=== PATIENT | female | born 1945 | race Asian ===

== ENCOUNTER 2016-12-11 07:35 | Outpatient (CLI) | payer OTHER ==
[~2016-12-11 07:35] MED LIST: ACET-655 PO; ACID REDUCER150 MG PO; B COMPLE2 PO; BIOTIN5000 MCG PO; FERRETTS325 MG OR; FERROUS SULF325 M1 PO; FLUT0.05 NAS; IRON SUPPLEMEN325 MG PO; IRON325 MG OR; LEVO0.0723 PO; LEVO0.08 PO; LISI10TA11 PO; LISI20TA11 PO; LISI20TA24 PO; LOPRESSOR100 MG; LOPRESSOR100 MG PO; MAG OXIDE400 MG PO; MECLIZINE25 MG PO; MILLIPRED5 MG; NEURONTIN 100M100 MG PO; PANT40TA PO; PRED5TAB3 PO; TRAM50TA PO; UNITH DIRECT88 MCG; VITAMIN D-35000 UNIT PO
[2016-12-11 07:58] LABS: PLATELET COUNT 174 K/uL (152-353)
[2016-12-11 08:38] LABS: POTASSIUM 3.6 mmol/L (3.6-5.2); SODIUM 137 mmol/L (136-145)
== END 2016-12-11 19:24 | disposition home or self-care (01) ==
LOC: MAMMO 07:35
PROVIDERS: Physician Assistant
DX: Z12.31 Encounter for screening mammogram for malignant neoplasm of breast (principal); E03.8 Other specified hypothyroidism; E87.1 Hypo-osmolality and hyponatremia; D64.89 Other specified anemias
CPT/HCPCS: 36415; 80053; 80061; 84439; 84443; 85027; G0202-TC

== ENCOUNTER 2017-05-23 09:58 | Outpatient (CLI) | payer OTHER | END 2017-05-23 21:34 | disposition home or self-care (01) | LOC: RAD 09:58 | DX: M85.89 Other specified disorders of bone density and structure, multiple sites (principal) ==

== ENCOUNTER 2017-05-26 09:31 | Outpatient (CLI) | payer OTHER | END 2017-05-26 19:01 | disposition home or self-care (01) | LOC: RAD 09:31 | DX: M85.88 Other specified disorders of bone density and structure, other site (principal) ==

== ENCOUNTER 2017-08-14 12:29 | Outpatient (CLI) | payer OTHER | END 2017-08-14 20:15 | disposition home or self-care (01) | LOC: LAB 12:29 | DX: M32.10 Systemic lupus erythematosus, organ or system involvement unspecified (principal); M79.7 Fibromyalgia; Z79.891 Long term (current) use of opiate analgesic | CPT/HCPCS: 81000 ==

== ENCOUNTER 2017-08-16 12:32 | Emergency (ER) | payer OTHER ==
[~2017-08-16] VITALS: Ht 165.1 cm; Wt 84.4 kg
[2017-08-16 13:33] VITALS: TEMP 98.7
[2017-08-16 15:18] LABS: PLATELET COUNT 171 K/uL (152-353)
[2017-08-16 15:28] LABS: POTASSIUM 3.7 mmol/L (3.6-5.2)
[2017-08-16 17:25] VITALS: BP 154/84
== END 2017-08-16 17:25 | disposition home or self-care (01) ==
LOC: ED 12:32
DX: R05 Cough (principal); J02.9 Acute pharyngitis, unspecified; R60.9 Edema, unspecified
CPT/HCPCS: 80053; 85027; 96374; 99284; J2930

== ENCOUNTER 2017-11-27 11:03 | Outpatient (CLI) | payer OTHER ==
[2017-11-27] MEDS ORDERED: LORA0.5T17 PO (22:38)
[2017-11-27] MEDS ORDERED: LOVASTATIN40 MG PO (22:43)
[2017-11-28] MEDS ORDERED: CYCL10TA35 PO (10:47)
== END 2017-11-27 11:13 | disposition short-term general hospital (02) ==
LOC: AMB 11:03
DX: R06.02 Shortness of breath (principal); I10 Essential (primary) hypertension
CPT/HCPCS: A0425; A0427

== ENCOUNTER 2017-11-27 11:23 | Observation (INO) | payer OTHER ==
[2017-11-27] VITALS (9 sets, daily range): BP systolic 80–196; BP diastolic 33–84; TEMP 97.3–98; Ht 165.1 cm; Wt 95.8 kg
[~2017-11-27] VITALS: Ht 165.1 cm; Wt 95.8 kg
[2017-11-27 12:42] LABS: PLATELET COUNT 199 K/uL (152-353)
[2017-11-27 12:45] LABS: POTASSIUM 3.6 mmol/L (3.6-5.2); SODIUM 135 mmol/L (136-145)
[2017-11-27] MEDS ORDERED: LORA0.5T17 PO (22:38)
[2017-11-27] MEDS ORDERED: LOVASTATIN40 MG PO (22:43)
[2017-11-28 00:27] VITALS: BP 127/63; TEMP 97.7
[2017-11-28 04:00] VITALS: BP 107/56; TEMP 98.2
[2017-11-28 05:41] LABS: PLATELET COUNT 166 K/uL (152-353)
[2017-11-28 06:03] LABS: POTASSIUM 3.3 mmol/L (3.6-5.2)
[2017-11-28 08:00] VITALS: BP 154/74; TEMP 97.8
[2017-11-28] MEDS ORDERED: CYCL10TA35 PO (10:47)
== END 2017-11-28 12:20 | disposition home or self-care (01) ==
LOC: ED 11:23 → MED/SURG 13:30
PROVIDERS: ADMIT Family Medicine
DX: I95.89 Other hypotension (principal); I10 Essential (primary) hypertension; R53.1 Weakness; M32.9 Systemic lupus erythematosus, unspecified; M79.7 Fibromyalgia
CPT/HCPCS: 36415; 80053; 82550; 82553; 84443; 84484; 85027; 86160; 93005; 96365; 96372; 96374; 99220; 99284; G0378; J1650; J2405

== ENCOUNTER 2017-12-17 17:25 | Outpatient (CLI) | payer OTHER ==
[~2017-12-17 17:25] MED LIST changes: +CYCL10TA35 PO; +LORA0.5T17 PO; +LOVASTATIN40 MG PO
[2017-12-17] MEDS ORDERED: ACYCLOVIR800 MG PO (18:11)
[2017-12-17] MEDS ORDERED: VITAMIN D-31000 UNI1 PO (18:12)
== END 2017-12-17 17:27 | disposition short-term general hospital (02) ==
LOC: AMB 17:25
DX: R07.89 Other chest pain (principal); M25.512 Pain in left shoulder; M25.511 Pain in right shoulder; R53.1 Weakness
CPT/HCPCS: A0425; A0429

== ENCOUNTER 2017-12-17 17:31 | Emergency (ER) | payer OTHER ==
[~2017-12-17] VITALS: Ht 165.1 cm; Wt 85.7 kg
[2017-12-17] MEDS ORDERED: ACYCLOVIR800 MG PO (18:11)
[2017-12-17] MEDS ORDERED: VITAMIN D-31000 UNI1 PO (18:12)
[2017-12-17 18:21] LABS: PLATELET COUNT 176 K/uL (152-353)
[2017-12-17 18:27] LABS: POTASSIUM 3.6 mmol/L (3.6-5.2)
[2017-12-17 19:45] VITALS: BP 135/71; TEMP 97.7
== END 2017-12-17 19:45 | disposition home or self-care (01) ==
LOC: ED 17:31
DX: T78.49XA Other allergy, initial encounter (principal); I47.1 Supraventricular tachycardia
CPT/HCPCS: 36415; 80053; 85027; 86787; 93005; 96374; 99284; J2930

== ENCOUNTER 2018-01-13 09:11 | Emergency (ER) | payer OTHER ==
[~2018-01-13] VITALS: Ht 165.1 cm; Wt 86.2 kg
[2018-01-13 09:18] VITALS: TEMP 97.9
[2018-01-13 09:34] LABS: PLATELET COUNT 211 K/uL (152-353)
[2018-01-13 09:45] LABS: POTASSIUM 3.2 mmol/L (3.6-5.2)
[2018-01-13 10:10] LABS: PARTIAL THROMBOPLASTIN TIME 25.4 SECONDS (24.5-33.6)
[2018-01-13 13:19] VITALS: BP 166/79
== END 2018-01-13 13:30 | disposition home or self-care (01) ==
LOC: ED 09:11
PROVIDERS: Emergency Medicine
DX: R07.89 Other chest pain (principal); T46.1X5A Adverse effect of calcium-channel blockers, initial encounter; Y92.89 Other specified places as the place of occurrence of the external cause
CPT/HCPCS: 80053; 82550; 82553; 83880; 84484; 85027; 85610; 85730; 93005; 96374; 96375; 99284; J1200; J2930

== ENCOUNTER → 2018-01-13 | Outpatient (CLI) | payer OTHER ==
[~2018-01-13] MED LIST changes: +ACYCLOVIR800 MG PO; +VITAMIN D-31000 UNI1 PO
== END | disposition short-term general hospital (02) ==
LOC: AMB 08:49
DX: R07.89 Other chest pain (principal); I10 Essential (primary) hypertension
CPT/HCPCS: A0425; A0427

== ENCOUNTER 2018-01-15 08:43 | Outpatient (CLI) | payer OTHER | END 2018-01-15 08:46 | disposition short-term general hospital (02) | LOC: AMB 08:43 | DX: R07.89 Other chest pain (principal); R53.1 Weakness | CPT/HCPCS: A0425; A0429 ==

== ENCOUNTER 2018-01-15 08:46 | Emergency (ER) | payer OTHER ==
[~2018-01-15] VITALS: Ht 165.1 cm; Wt 86.2 kg
[2018-01-15 08:50] VITALS: TEMP 98.4
[2018-01-15 09:23] LABS: PLATELET COUNT 214 K/uL (152-353)
[2018-01-15 09:28] LABS: POTASSIUM 3.2 mmol/L (3.6-5.2)
[2018-01-15 10:57] VITALS: BP 163/81
== END 2018-01-15 10:58 | disposition home or self-care (01) ==
LOC: ED 08:46
PROVIDERS: Internal Medicine
DX: M94.0 Chondrocostal junction syndrome [Tietze] (principal); R07.89 Other chest pain; I10 Essential (primary) hypertension; E87.6 Hypokalemia; R00.2 Palpitations
CPT/HCPCS: 36415; 80053; 82550; 84484; 85027; 93005; 96374; 99284; J1885; J3490

== ENCOUNTER 2018-01-16 07:51 | Outpatient (CLI) | payer OTHER ==
[2018-01-16 08:26] LABS: PLATELET COUNT 213 K/uL (152-353)
[2018-01-16 09:26] LABS: POTASSIUM 3.9 mmol/L (3.6-5.2)
== END 2018-01-16 18:55 | disposition home or self-care (01) ==
LOC: LABW 07:51
PROVIDERS: Physician Assistant
DX: I10 Essential (primary) hypertension (principal); E78.5 Hyperlipidemia, unspecified; E03.9 Hypothyroidism, unspecified; D64.9 Anemia, unspecified; E55.9 Vitamin D deficiency, unspecified; Z79.899 Other long term (current) drug therapy
CPT/HCPCS: 36415; 80053; 80061; 82306; 82607; 83036; 83735; 84439; 84443; 85027

== ENCOUNTER 2018-01-21 08:28 | Outpatient (CLI) | payer OTHER | END 2018-01-21 23:30 | disposition home or self-care (01) | LOC: MAMMO 08:28 | DX: Z12.31 Encounter for screening mammogram for malignant neoplasm of breast (principal) ==

== ENCOUNTER 2018-02-24 09:41 | Outpatient (CLI) | payer OTHER ==
[2018-02-24] MEDS ORDERED: LISI20TA11 PO (10:05)
[2018-06-21] MEDS ORDERED: HYDRALAZINE25 MG PO (09:33)
[2018-06-21] MEDS ORDERED: POTASSIUM CHLO20 ME1 PO (09:35)
[2018-06-21] MEDS ORDERED: DOCU100C10 PO (09:35)
[2018-06-21] MEDS ORDERED: RANI150T78 PO (09:37)
[2018-06-21] MEDS ORDERED: METO50TA63 PO (09:39)
[2018-06-21] MEDS ORDERED: TRAMADOL HYDROC50 MG PO (09:40)
== END 2018-02-24 09:44 | disposition short-term general hospital (02) ==
LOC: AMB 09:41
DX: I10 Essential (primary) hypertension (principal)
CPT/HCPCS: A0425; A0429

== ENCOUNTER 2018-02-24 09:48 | Emergency (ER) | payer OTHER ==
[~2018-02-24] VITALS: Ht 165.1 cm; Wt 86.2 kg
[2018-02-24 09:52] VITALS: TEMP 97.2
[2018-02-24] MEDS ORDERED: LISI20TA11 PO (10:05)
[2018-02-24 10:17] LABS: PLATELET COUNT 176 K/uL (152-353)
[2018-02-24 10:22] LABS: POTASSIUM 3.7 mmol/L (3.6-5.2)
[2018-02-24 11:30] VITALS: BP 129/69
[2018-06-21] MEDS ORDERED: HYDRALAZINE25 MG PO (09:33)
[2018-06-21] MEDS ORDERED: POTASSIUM CHLO20 ME1 PO (09:35)
[2018-06-21] MEDS ORDERED: DOCU100C10 PO (09:35)
[2018-06-21] MEDS ORDERED: RANI150T78 PO (09:37)
[2018-06-21] MEDS ORDERED: METO50TA63 PO (09:39)
[2018-06-21] MEDS ORDERED: TRAMADOL HYDROC50 MG PO (09:40)
== END 2018-02-24 11:50 | disposition home health service (06) ==
LOC: ED 09:48
PROVIDERS: Family Medicine
DX: I10 Essential (primary) hypertension (principal); T44.7X5A Adverse effect of beta-adrenoreceptor antagonists, initial encounter; Y92.89 Other specified places as the place of occurrence of the external cause
CPT/HCPCS: 80053; 81000; 85027; 99283

== ENCOUNTER 2018-03-04 09:58 | Outpatient (CLI) | payer OTHER ==
[2018-06-21] MEDS ORDERED: HYDRALAZINE25 MG PO (09:33)
[2018-06-21] MEDS ORDERED: DOCU100C10 PO (09:35)
[2018-06-21] MEDS ORDERED: POTASSIUM CHLO20 ME1 PO (09:35)
[2018-06-21] MEDS ORDERED: RANI150T78 PO (09:37)
[2018-06-21] MEDS ORDERED: METO50TA63 PO (09:39)
[2018-06-21] MEDS ORDERED: TRAMADOL HYDROC50 MG PO (09:40)
== END 2018-03-04 22:15 | disposition home or self-care (01) ==
LOC: US 09:58
DX: I15.8 Other secondary hypertension (principal); R10.84 Generalized abdominal pain; R79.89 Other specified abnormal findings of blood chemistry

== ENCOUNTER 2018-04-10 08:44 | Outpatient (CLI) | payer OTHER | END 2018-04-10 19:36 | disposition home or self-care (01) | LOC: RESP 08:44 | DX: R06.02 Shortness of breath (principal) ==

== ENCOUNTER 2018-04-23 07:39 | Outpatient (CLI) | payer OTHER ==
[2018-04-23 09:04] LABS: POTASSIUM 3.5 mmol/L (3.6-5.2)
== END 2018-04-23 19:31 | disposition home or self-care (01) ==
LOC: LABW 07:39
PROVIDERS: Internal Medicine Cardiovascular Disease
DX: Z79.899 Other long term (current) drug therapy (principal)
CPT/HCPCS: 36415; 80048; 84443

== ENCOUNTER 2018-05-04 10:09 | Outpatient (CLI) | payer OTHER | END 2018-05-04 19:55 | disposition home or self-care (01) | LOC: US 10:09 | DX: Z13.820 Encounter for screening for osteoporosis (principal); Z00.00 Encounter for general adult medical examination without abnormal findings ==

== ENCOUNTER 2018-06-02 07:32 | Outpatient (CLI) | payer OTHER ==
[2018-06-02 08:08] LABS: PLATELET COUNT 171 K/uL (152-353)
[2018-06-02 08:28] LABS: POTASSIUM 3.5 mmol/L (3.6-5.2)
== END 2018-06-02 22:11 | disposition home or self-care (01) ==
LOC: LABW 07:32
PROVIDERS: Internal Medicine Rheumatology
DX: M32.10 Systemic lupus erythematosus, organ or system involvement unspecified (principal); R53.83 Other fatigue; Z79.899 Other long term (current) drug therapy
CPT/HCPCS: 36415; 80053; 82784; 85027; 85651; 86140; 86160; 86162; 86225

== ENCOUNTER 2018-06-05 09:07 | Emergency (ER) | payer OTHER ==
[~2018-06-05] VITALS: Ht 165.1 cm; Wt 87.1 kg
[2018-06-05 09:10] VITALS: TEMP 98.1
[2018-06-05 09:48] LABS: PLATELET COUNT 154 K/uL (152-353)
[2018-06-05 10:03] LABS: POTASSIUM 3.8 mmol/L (3.6-5.2)
[2018-06-05 13:58] VITALS: BP 146/78
== END 2018-06-05 13:58 | disposition home or self-care (01) ==
LOC: ED 09:07
PROVIDERS: Family Medicine
DX: G89.29 Other chronic pain (principal); R91.1 Solitary pulmonary nodule
CPT/HCPCS: 36415; 74022; 80053; 81000; 85027; 96372; 99283; J1885

== ENCOUNTER 2018-06-09 10:58 | Inpatient (IN) | payer OTHER ==
[~2018-06-09] VITALS: Ht 166.4 cm; Wt 89.6 kg
[2018-06-09 13:02] LABS: PLATELET COUNT 201 K/uL (152-353)
[2018-06-09 13:17] LABS: POTASSIUM 3.6 mmol/L (3.6-5.2)
[2018-06-09 13:38] LABS: PARTIAL THROMBOPLASTIN TIME 30.3 SECONDS (24.5-33.6)
[2018-06-09 18:08] VITALS: BP 142/71; TEMP 99; Ht 166.4 cm; Wt 89.6 kg
[2018-06-09 20:00] VITALS: BP 120/51; TEMP 99.4
--- NOTE | 2018-06-09 22:01 | NUR ---
EMERY, LAND CHECKER CALLED AND STATED THAT PT WAS SOB. I ASSESSED PT. PT SAT WAS 97% ON RA, HR WAS 83, AND BS WERE CLEAR. PT WAS ALERT AND ORIENTED. PT SHOWED NO SIGNS OF RESP DISTRESS. PT NURSE WAS AT BEDSIDE AND ABOUT TO GIVE PT HER MEDS FOR TONIGHT.
[2018-06-10 00:19] VITALS: BP 139/58; TEMP 97.6
[2018-06-10 04:00] VITALS: BP 142/69; TEMP 98.5
[2018-06-10 08:00] VITALS: BP 156/70; TEMP 97.8
[2018-06-10 12:00] VITALS: BP 142/77; TEMP 97.6
--- NOTE | 2018-06-10 15:24 | NUR ---
PATIENT AND REQUESTING A HOME HEALTH EVAL..REFERRAL FAXED TO [facility].
[2018-06-10 16:00] VITALS: BP 157/73; TEMP 98.3
[2018-06-10 20:45] VITALS: BP 147/72; TEMP 97.8
[2018-06-11] VITALS: BP 136/66; TEMP 97.7
[2018-06-11 04:00] VITALS: BP 132/71; TEMP 97.7
[2018-06-11 06:20] LABS: POTASSIUM 3.2 mmol/L (3.6-5.2)
[2018-06-11 06:29] LABS: PLATELET COUNT 249 K/uL (152-353)
[2018-06-11 08:00] VITALS: BP 135/67; TEMP 98
[2018-06-11 12:00] VITALS: BP 158/84; TEMP 97.8
[2018-06-11 16:01] VITALS: BP 152/85; TEMP 97.6
[2018-06-11 20:00] VITALS: BP 175/82; TEMP 97.7
[2018-06-12] VITALS (7 sets, daily range): BP systolic 158–183; BP diastolic 78–93; TEMP 97.5–98.8
[2018-06-12 06:01] LABS: PLATELET COUNT 300 K/uL (152-353)
[2018-06-12 06:27] LABS: POTASSIUM 3.2 mmol/L (3.6-5.2)
--- NOTE | 2018-06-12 17:00 | NUR ---
PT C/O OF CHEST PAIN IN CENTER OF CHEST AFTER PLANE TABLEMAN'S HELPED PT BACK INTO BED. PT RATED PAIN 8/10. PT'S B/P 200/120 AND 92 PULSE. STAT CE'S WITH EKG COMPLETED. DR ROBLES NOTIFIED. WILL CONT TO MONITOR.
--- NOTE | 2018-06-12 17:10 | NUR ---
PT'S CE'S WNL AND EKG (NSR) CALLED IN TO DR. ROBLES. PT STATES PAIN IS BETTER. DR. ROBLES STATES TO GIVE PT IV TORADOL AND TO REPEAT CE'S IN THE AM.
[2018-06-13 04:26] VITALS: BP 157/79; TEMP 97.7
[2018-06-13 05:44] LABS: PLATELET COUNT 346 K/uL (152-353)
[2018-06-13 05:55] LABS: POTASSIUM 3.2 mmol/L (3.6-5.2)
[2018-06-13 08:06] VITALS: BP 166/85; TEMP 97.9
[2018-06-13 12:07] VITALS: BP 157/87; TEMP 97.5
[2018-06-13 16:13] VITALS: BP 143/74; TEMP 97.9
[2018-06-13 19:55] VITALS: BP 160/88; TEMP 97.6
[2018-06-14] VITALS: BP 171/82; TEMP 97.7
[2018-06-14 04:00] VITALS: BP 191/90; TEMP 98.3
[2018-06-14 08:00] VITALS: BP 169/998; TEMP 97.5
[2018-06-14 12:08] VITALS: BP 158/84; TEMP 97.6
[2018-06-14 16:23] VITALS: BP 184/105; TEMP 97.6
--- NOTE | 2018-06-14 18:06 | NUR ---
PT'S B/P IS 180/112. HYDRALAZINE 12.5 PO GIVEN AND ORDERED Q12 PRN. PT STATES SHE HAS PAIN IN RIB CAGE AND BACK. TORADOL IV GIVEN.
--- NOTE | 2018-06-14 18:36 | NUR ---
PT STATES PAIN BELOW RIB CAGE IS GONE BUT PT HAS H/A. TYLENOL PRN ORDERED. B/P IS DOWN TO 178/87.
[2018-06-14 20:00] VITALS: BP 169/83; TEMP 98.4
[2018-06-15] VITALS: BP 142/72; TEMP 98.8
[2018-06-15 04:00] VITALS: BP 166/82; TEMP 98.4
[2018-06-15 08:00] VITALS: BP 160/87; TEMP 98.9
[2018-06-15 12:00] VITALS: BP 146/80; TEMP 98.6
[2018-06-15 13:04] LABS: POTASSIUM 3.8 mmol/L (3.6-5.2)
[2018-06-15 16:00] VITALS: BP 154/91; TEMP 98.3
[2018-06-15 20:00] VITALS: BP 134/68; TEMP 97.5
[2018-06-16] VITALS: BP 139/90; TEMP 97.8
[2018-06-16 04:00] VITALS: BP 144/82; TEMP 98.3
[2018-06-16 08:00] VITALS: BP 117/54; TEMP 98.2
--- NOTE | 2018-06-16 09:00 | NUR ---
PT STATES " I'M NOT GOING TO TAKE ANY MEDICINES UNTIL I TALK TO THE DR ABOUT WHICH MEDICINES TO TAKE." DR STINSON WILL BE NOTIFIED.
--- NOTE | 2018-06-16 09:45 | NUR ---
DR STINSON'S OFFICE CALLED. APPLICATION PENETRATION TESTER STATES DR STINSON IS IN A ROOM AT THIS MOMENT AND SHE WILL CALL BACK
[2018-06-16 12:00] VITALS: BP 135/62; TEMP 97.9
--- NOTE | 2018-06-16 13:15 | NUR ---
PT D/C IV D/C TIP INTACT. PT INSTRUCTED TO F/U WITH DR ENNIS ON 06/30/18 AT 1030 AND TO KEEP F/U APPOINTMENT WITH DR WERNER IN [facility]. PT INSTRUCTED TO TAKE LEVOQUIN 750 MG PO DAILY AND MEDROL DOSE EBNNY X [address] ENNIS CALLED MEDICATIONS INTO [facility]. PT GIVEN EDUCATION AND DISCHARGE SUMMARY. PT HAS NOT FURTHER QUESTIONS AT THIS TIME. PT D/C VIA W/C
[2018-06-21] MEDS ORDERED: HYDRALAZINE25 MG PO (09:33)
[2018-06-21] MEDS ORDERED: POTASSIUM CHLO20 ME1 PO (09:35)
[2018-06-21] MEDS ORDERED: DOCU100C10 PO (09:35)
[2018-06-21] MEDS ORDERED: RANI150T78 PO (09:37)
[2018-06-21] MEDS ORDERED: METO50TA63 PO (09:39)
[2018-06-21] MEDS ORDERED: TRAMADOL HYDROC50 MG PO (09:40)
== END 2018-06-16 13:15 | disposition home or self-care (01) | DRG 194 ==
LOC: MED/SURG 10:58
PROVIDERS: Internal Medicine; ADMIT Physician Assistant
DX: J18.8 Other pneumonia, unspecified organism (principal); J90 Pleural effusion, not elsewhere classified; N39.0 Urinary tract infection, site not specified; M32.8 Other forms of systemic lupus erythematosus; E86.0 Dehydration; E87.6 Hypokalemia; I10 Essential (primary) hypertension; E03.8 Other specified hypothyroidism; K21.9 Gastro-esophageal reflux disease without esophagitis; M79.7 Fibromyalgia
CPT/HCPCS: 36415; 36591; 80048; 80053; 80074; 81000; 82150; 82550; 83690; 84443; 84484; 85027; 85610; 85651; 85730; 86140; 87086; 87088; 93005; 94760; J1650; J1885; J1956; J2780; J2920; J2930; J3490; Q9963

== ENCOUNTER 2018-06-20 15:00 | Outpatient (CLI) | payer OTHER ==
[2018-06-21] MEDS ORDERED: HYDRALAZINE25 MG PO (09:33)
[2018-06-21] MEDS ORDERED: POTASSIUM CHLO20 ME1 PO (09:35)
[2018-06-21] MEDS ORDERED: DOCU100C10 PO (09:35)
[2018-06-21] MEDS ORDERED: RANI150T78 PO (09:37)
[2018-06-21] MEDS ORDERED: METO50TA63 PO (09:39)
[2018-06-21] MEDS ORDERED: TRAMADOL HYDROC50 MG PO (09:40)
== END 2018-06-20 15:05 | disposition short-term general hospital (02) ==
LOC: AMB 15:00
DX: R06.09 Other forms of dyspnea (principal); M25.519 Pain in unspecified shoulder
CPT/HCPCS: A0425; A0429

== ENCOUNTER 2018-06-25 16:30 | Inpatient (IN) | payer OTHER ==
[~2018-06-25 16:30] MED LIST changes: +DOCU100C10 PO; +HYDRALAZINE25 MG PO; +METO50TA63 PO; +POTASSIUM CHLO20 ME1 PO; +RANI150T78 PO; +TRAMADOL HYDROC50 MG PO
== END 2018-06-27 08:36 | disposition still patient (30) ==
LOC: PAVB 16:30
PROVIDERS: ADMIT Internal Medicine

== ENCOUNTER 2018-06-26 18:26 | Outpatient (CLI) | payer OTHER | END 2018-06-26 20:41 | disposition home or self-care (01) | LOC: LAB 18:26 | PROVIDERS: Internal Medicine | DX: D64.9 Anemia, unspecified (principal); I10 Essential (primary) hypertension; N18.9 Chronic kidney disease, unspecified | CPT/HCPCS: 80061; 82728; 83540; 83735 ==

== ENCOUNTER 2018-06-27 08:50 | Inpatient (IN) | payer OTHER | END 2018-07-28 11:08 | disposition still patient (30) | LOC: PAVB 08:50 | PROVIDERS: ADMIT Internal Medicine ==

== ENCOUNTER 2018-07-02 05:44 | Outpatient (CLI) | payer OTHER ==
[2018-07-02 06:25] LABS: POTASSIUM 3.9 mmol/L (3.6-5.2)
[2018-07-02 06:27] LABS: PLATELET COUNT 164 K/uL (152-353)
== END 2018-07-02 23:33 | disposition home or self-care (01) ==
LOC: LAB 05:44
PROVIDERS: Internal Medicine
DX: Z51.81 Encounter for therapeutic drug level monitoring (principal)
CPT/HCPCS: 80053; 83735; 85027

== ENCOUNTER 2018-07-10 15:58 | Outpatient (CLI) | payer OTHER | END 2018-07-10 20:55 | disposition home or self-care (01) | LOC: RAD 15:58 | DX: M79.672 Pain in left foot (principal); M25.572 Pain in left ankle and joints of left foot ==

== ENCOUNTER 2018-07-16 13:05 | Outpatient (CLI) | payer OTHER | END 2018-07-16 21:46 | disposition home or self-care (01) | LOC: MRI 13:05 | DX: M79.672 Pain in left foot (principal); M25.572 Pain in left ankle and joints of left foot | CPT/HCPCS: A9576 ==

== ENCOUNTER 2018-07-28 11:40 | Inpatient (IN) | payer OTHER | END 2018-08-28 13:45 | disposition still patient (30) | LOC: PAVB 11:40 | PROVIDERS: ADMIT Internal Medicine ==

== ENCOUNTER 2018-08-03 13:19 | Outpatient (CLI) | payer OTHER ==
[2018-08-03 13:53] LABS: PLATELET COUNT 221 K/uL (152-353)
[2018-08-03 14:11] LABS: POTASSIUM 4.2 mmol/L (3.6-5.2)
== END 2018-08-03 20:27 | disposition home or self-care (01) ==
LOC: RAD 13:19 → RESP 13:19 → RAD 20:27
PROVIDERS: Internal Medicine
DX: R41.82 Altered mental status, unspecified (principal); R06.09 Other forms of dyspnea; R55 Syncope and collapse
CPT/HCPCS: 36415; 80053; 81000; 83880; 85027; 85379; 93005

== ENCOUNTER 2018-08-25 06:16 | Outpatient (CLI) | payer OTHER ==
[2018-08-25 07:38] LABS: PLATELET COUNT 204 K/uL (152-353)
[2018-08-25 08:15] LABS: POTASSIUM 4.1 mmol/L (3.6-5.2)
== END 2018-08-25 19:01 | disposition home or self-care (01) ==
LOC: LAB 06:16
PROVIDERS: Internal Medicine
DX: R53.1 Weakness (principal)
CPT/HCPCS: 80053; 81000; 85027; 87077; 87086; 87088; 87186

== ENCOUNTER 2018-08-28 12:21 | Emergency (ER) | payer OTHER ==
[~2018-08-28] VITALS: Ht 196.8 cm; Wt 88.5 kg
[2018-08-28 13:04] VITALS: TEMP 98.7
[2018-08-28 13:26] LABS: PLATELET COUNT 192 K/uL (152-353)
[2018-08-28 13:50] LABS: SODIUM 139 mmol/L (136-145)
[2018-08-28 20:45] VITALS: BP 143/78
== END 2018-08-28 20:47 | disposition short-term general hospital (02) ==
LOC: ED 12:21
PROVIDERS: Emergency Medicine
DX: R07.89 Other chest pain (principal); R55 Syncope and collapse; R79.89 Other specified abnormal findings of blood chemistry; I10 Essential (primary) hypertension; R06.02 Shortness of breath
CPT/HCPCS: 36415; 80053; 81000; 83735; 84443; 84484; 85027; 85379; 93005; 99285

== ENCOUNTER 2018-08-28 14:00 | Inpatient (IN) | payer OTHER | END 2018-09-25 11:42 | disposition still patient (30) | LOC: PAVB 14:00 | PROVIDERS: ADMIT Internal Medicine | DX: R55 Syncope and collapse (principal); R07.89 Other chest pain; M62.81 Muscle weakness (generalized); R26.81 Unsteadiness on feet; M32.9 Systemic lupus erythematosus, unspecified; D64.9 Anemia, unspecified; M79.7 Fibromyalgia; I10 Essential (primary) hypertension; M85.80 Other specified disorders of bone density and structure, unspecified site; I26.99 Other pulmonary embolism without acute cor pulmonale | CPT/HCPCS: 85014; 85018 ==

== ENCOUNTER 2018-09-08 12:56 | Emergency (ER) | payer OTHER ==
[~2018-09-08] VITALS: Ht 196.8 cm; Wt 88.5 kg
[2018-09-08 13:08] VITALS: TEMP 98.3
[2018-09-08 14:15] LABS: PLATELET COUNT 292 K/uL (152-353)
[2018-09-08 14:20] LABS: POTASSIUM 4.4 mmol/L (3.6-5.2)
[2018-09-08 15:13] VITALS: BP 138/69
== END 2018-09-08 15:20 ==
LOC: ED 12:56
PROVIDERS: Family Medicine
DX: R55 Syncope and collapse (principal)
CPT/HCPCS: 36415; 80053; 81000; 85027; 93005; 99283

== ENCOUNTER 2018-09-25 12:00 | Inpatient (IN) | payer OTHER | END 2018-10-26 11:36 | disposition still patient (30) | LOC: PAVB 12:00 | PROVIDERS: ADMIT Internal Medicine ==

== ENCOUNTER 2018-10-10 06:40 | Outpatient (CLI) | payer OTHER ==
[2018-10-10 07:53] LABS: PLATELET COUNT 236 K/uL (152-353)
== END 2018-10-10 23:41 | disposition home or self-care (01) ==
LOC: LAB 06:40
PROVIDERS: Internal Medicine
DX: I10 Essential (primary) hypertension (principal)
CPT/HCPCS: 80053; 85027

== ENCOUNTER 2018-10-26 11:50 | Inpatient (IN) | payer OTHER | END 2018-11-25 12:45 | disposition still patient (30) | LOC: PAVB 11:50 | PROVIDERS: ADMIT Internal Medicine ==

== ENCOUNTER 2018-11-25 13:34 | Inpatient (IN) | payer OTHER | END 2018-12-26 08:41 | disposition still patient (30) | LOC: PAVB 13:34 | PROVIDERS: ADMIT Internal Medicine | DX: Z51.89 Encounter for other specified aftercare (principal) ==

== ENCOUNTER 2018-12-01 06:38 | Outpatient (CLI) | payer OTHER | END 2018-12-01 19:27 | disposition home or self-care (01) | LOC: LAB 06:38 | DX: D50.8 Other iron deficiency anemias (principal); E03.8 Other specified hypothyroidism | CPT/HCPCS: 82728; 83540; 84443 ==

== ENCOUNTER 2018-12-19 04:10 | Outpatient (CLI) | payer OTHER | END 2018-12-19 19:42 | disposition home or self-care (01) | LOC: LAB 04:10 | DX: M10.9 Gout, unspecified (principal); J02.9 Acute pharyngitis, unspecified | CPT/HCPCS: 84550 ==

== ENCOUNTER 2018-12-23 10:54 | Outpatient (CLI) | payer OTHER | END 2018-12-23 10:56 | disposition short-term general hospital (02) | LOC: AMB 10:54 | DX: R55 Syncope and collapse (principal) | CPT/HCPCS: A0425; A0427 ==

== ENCOUNTER 2018-12-23 10:58 | Emergency (ER) | payer OTHER ==
[~2018-12-23] VITALS: Ht 196.8 cm; Wt 88.5 kg
[2018-12-23 11:06] VITALS: TEMP 97.3
[2018-12-23 11:50] LABS: PLATELET COUNT 243 K/uL (152-353)
[2018-12-23 11:55] LABS: POTASSIUM 3.4 mmol/L (3.6-5.2)
[2018-12-23 13:20] VITALS: BP 144/78
== END 2018-12-23 13:48 | disposition home or self-care (01) ==
LOC: ED 10:58
PROVIDERS: Emergency Medicine
DX: R55 Syncope and collapse (principal)
CPT/HCPCS: 80053; 85027; 93005; 96360; 99284

== ENCOUNTER 2018-12-26 08:55 | Inpatient (IN) | payer OTHER | END 2019-01-25 09:42 | disposition still patient (30) | LOC: PAVB 08:55 | PROVIDERS: ADMIT Internal Medicine ==

== ENCOUNTER 2018-12-27 23:25 | Emergency (ER) | payer OTHER ==
[~2018-12-27] VITALS: Ht 196.8 cm; Wt 88.5 kg
[2018-12-28 02:50] VITALS: BP 123/60; TEMP 98.8
== END 2018-12-28 02:50 ==
LOC: ED 23:25
DX: T36.3X1A Poisoning by macrolides, accidental (unintentional), initial encounter (principal); L50.0 Allergic urticaria; Y92.128 Other place in nursing home as the place of occurrence of the external cause
CPT/HCPCS: 96372; 96374; 96376; 99284; J0171; J1200; J2930

== ENCOUNTER 2018-12-30 05:48 | Outpatient (CLI) | payer OTHER ==
[2018-12-30 06:21] LABS: POTASSIUM 3.9 mmol/L (3.6-5.2)
[2018-12-30 06:23] LABS: PLATELET COUNT 199 K/uL (152-353)
== END 2018-12-30 23:23 | disposition home or self-care (01) ==
LOC: LAB 05:48
PROVIDERS: Internal Medicine
DX: I10 Essential (primary) hypertension (principal); E83.42 Hypomagnesemia
CPT/HCPCS: 80053; 83735; 85027

== ENCOUNTER 2019-01-07 05:07 | Outpatient (CLI) | payer OTHER | END 2019-01-07 19:40 | disposition home or self-care (01) | LOC: LAB 05:07 | DX: E83.42 Hypomagnesemia (principal) | CPT/HCPCS: 83735 ==

== ENCOUNTER 2019-01-15 06:46 | Outpatient (CLI) | payer OTHER | END 2019-01-15 23:30 | disposition home or self-care (01) | LOC: LAB 06:46 | DX: E83.42 Hypomagnesemia (principal) | CPT/HCPCS: 36415; 83735 ==

== ENCOUNTER 2019-01-23 05:08 | Outpatient (CLI) | payer OTHER | END 2019-01-23 19:00 | disposition home or self-care (01) | LOC: LAB 05:08 | DX: E05.90 Thyrotoxicosis, unspecified without thyrotoxic crisis or storm (principal) | CPT/HCPCS: 84439; 84443 ==

== ENCOUNTER 2019-01-25 09:55 | Inpatient (IN) | payer OTHER | END 2019-02-25 10:38 | disposition still patient (30) | LOC: PAVB 09:55 | PROVIDERS: ADMIT Internal Medicine ==

== ENCOUNTER 2019-02-02 06:02 | Outpatient (CLI) | payer OTHER | END 2019-02-02 19:57 | disposition home or self-care (01) | LOC: LAB 06:02 | DX: E61.2 Magnesium deficiency (principal); M25.50 Pain in unspecified joint | CPT/HCPCS: 36415; 83735 ==

== ENCOUNTER 2019-02-09 06:26 | Outpatient (CLI) | payer OTHER | END 2019-02-09 23:22 | disposition home or self-care (01) | LOC: LAB 06:26 | DX: R35.8 Other polyuria (principal); R30.9 Painful micturition, unspecified | CPT/HCPCS: 81000; 87088 ==

== ENCOUNTER 2019-02-16 05:42 | Outpatient (CLI) | payer OTHER | END 2019-02-16 22:23 | disposition home or self-care (01) | LOC: LAB 05:42 | DX: E61.2 Magnesium deficiency (principal) | CPT/HCPCS: 83735 ==

== ENCOUNTER 2019-02-19 13:38 | Outpatient (CLI) | payer OTHER ==
[2019-02-19 14:02] LABS: PLATELET COUNT 220 K/uL (152-353)
[2019-02-19 14:20] LABS: POTASSIUM 3.8 mmol/L (3.6-5.2)
== END 2019-02-19 19:12 | disposition home or self-care (01) ==
LOC: LAB 13:38
PROVIDERS: Internal Medicine
DX: D64.89 Other specified anemias (principal); I10 Essential (primary) hypertension
CPT/HCPCS: 80053; 84436; 84443; 84480; 85027

== ENCOUNTER 2019-02-25 11:40 | Inpatient (IN) | payer OTHER | END 2019-03-28 16:29 | disposition still patient (30) | LOC: PAVB 11:40 | PROVIDERS: ADMIT Internal Medicine ==

== ENCOUNTER 2019-03-28 16:42 | Inpatient (IN) | payer OTHER | END 2019-04-27 09:36 | disposition still patient (30) | LOC: PAVB 16:42 | PROVIDERS: ADMIT Internal Medicine ==

== ENCOUNTER 2019-04-26 05:30 | Outpatient (CLI) | payer OTHER | END 2019-04-26 20:34 | disposition home or self-care (01) | LOC: LAB 05:30 | DX: Z51.81 Encounter for therapeutic drug level monitoring (principal); E03.8 Other specified hypothyroidism | CPT/HCPCS: 84443 ==

== ENCOUNTER 2019-04-27 11:56 | Inpatient (IN) | payer OTHER | END 2019-05-28 11:13 | disposition still patient (30) | LOC: PAVB 11:56 | PROVIDERS: ADMIT Internal Medicine ==

== ENCOUNTER 2019-05-28 12:04 | Inpatient (IN) | payer OTHER | END 2019-06-27 08:00 | disposition still patient (30) | LOC: PAVB 12:04 | PROVIDERS: ADMIT Internal Medicine ==

== ENCOUNTER 2019-06-01 06:08 | Outpatient (CLI) | payer OTHER | END 2019-06-01 20:30 | disposition home or self-care (01) | LOC: LAB 06:08 | PROVIDERS: Internal Medicine | DX: E05.90 Thyrotoxicosis, unspecified without thyrotoxic crisis or storm (principal); E50.8 Other manifestations of vitamin A deficiency; D64.9 Anemia, unspecified | CPT/HCPCS: 80061; 82728; 83540; 84443 ==

== ENCOUNTER 2019-06-17 15:06 | Outpatient (CLI) | payer OTHER | END 2019-06-17 15:09 | disposition short-term general hospital (02) | LOC: AMB 15:06 | DX: R55 Syncope and collapse (principal); R51 Headache; M54.2 Cervicalgia; M54.5 Low back pain | CPT/HCPCS: A0425; A0427 ==

== ENCOUNTER 2019-06-17 15:14 | Emergency (ER) | payer OTHER ==
[~2019-06-17] VITALS: Ht 166.4 cm; Wt 89.8 kg
[2019-06-17 15:59] LABS: PLATELET COUNT 255 K/uL (152-353)
[2019-06-17 16:14] LABS: POTASSIUM 4.1 mmol/L (3.6-5.2); SODIUM 138 mmol/L (136-145)
[2019-06-17 17:00] VITALS: BP 162/68; TEMP 97.8
== END 2019-06-17 17:00 | disposition home or self-care (01) ==
LOC: ED 15:14
PROVIDERS: Emergency Medicine
DX: R55 Syncope and collapse (principal); M54.89 Other dorsalgia; M54.2 Cervicalgia; E86.0 Dehydration; N39.0 Urinary tract infection, site not specified; R00.1 Bradycardia, unspecified; Z79.899 Other long term (current) drug therapy
CPT/HCPCS: 80053; 81000; 82272; 83735; 84484; 85027; 87077; 87086; 87088; 87186; 93005; 96360; 96372; 99284; J3475

== ENCOUNTER 2019-06-27 10:10 | Inpatient (IN) | payer OTHER | END 2019-07-28 09:04 | disposition still patient (30) | LOC: PAVB 10:10 | PROVIDERS: ADMIT Internal Medicine ==

== ENCOUNTER 2019-07-01 07:41 | Outpatient (CLI) | payer OTHER ==
[2019-07-01 08:18] LABS: PLATELET COUNT 194 K/uL (152-353)
== END 2019-07-01 19:44 | disposition home or self-care (01) ==
LOC: LAB 07:41
PROVIDERS: Internal Medicine
DX: I10 Essential (primary) hypertension (principal); E83.49 Other disorders of magnesium metabolism
CPT/HCPCS: 36415; 80053; 83735; 85027

== ENCOUNTER 2019-07-28 04:56 | Outpatient (CLI) | payer OTHER | END 2019-07-28 22:01 | disposition home or self-care (01) | LOC: LAB 04:56 | DX: E03.8 Other specified hypothyroidism (principal) | CPT/HCPCS: 36415; 84439; 84443 ==

== ENCOUNTER 2019-07-28 09:16 | Inpatient (IN) | payer OTHER | END 2019-08-28 09:59 | disposition still patient (30) | LOC: PAVB 09:16 | PROVIDERS: ADMIT Internal Medicine ==

== ENCOUNTER 2019-08-05 10:12 | Outpatient (CLI) | payer OTHER | END 2019-08-05 22:29 | disposition home or self-care (01) | LOC: RESP 10:12 | DX: I10 Essential (primary) hypertension (principal); R55 Syncope and collapse; R51 Headache; M25.60 Stiffness of unspecified joint, not elsewhere classified ==

== ENCOUNTER 2019-08-28 10:14 | Inpatient (IN) | payer OTHER | END 2019-09-26 13:18 | disposition still patient (30) | LOC: PAVB 10:14 | PROVIDERS: ADMIT Internal Medicine ==

== ENCOUNTER 2019-09-26 13:35 | Inpatient (IN) | payer OTHER | END 2019-10-27 09:43 | disposition still patient (30) | LOC: PAVB 13:35 | PROVIDERS: ADMIT Internal Medicine ==

== ENCOUNTER 2019-10-12 14:21 | Outpatient (CLI) | payer OTHER | END 2019-10-12 19:04 | disposition home or self-care (01) | LOC: US 14:21 | DX: E03.8 Other specified hypothyroidism (principal) ==

== ENCOUNTER 2019-10-15 09:05 | Outpatient (CLI) | payer OTHER | END 2019-10-15 19:27 | disposition home or self-care (01) | LOC: RAD 09:05 | DX: K21.9 Gastro-esophageal reflux disease without esophagitis (principal); R13.12 Dysphagia, oropharyngeal phase ==

== ENCOUNTER 2019-10-27 10:33 | Inpatient (IN) | payer OTHER | END 2019-11-26 09:04 | disposition still patient (30) | LOC: PAVB 10:33 | PROVIDERS: ADMIT Internal Medicine ==

== ENCOUNTER 2019-10-30 06:02 | Outpatient (CLI) | payer OTHER ==
[2019-10-30 06:47] LABS: PLATELET COUNT 192 K/uL (152-353)
== END 2019-10-30 23:06 | disposition home or self-care (01) ==
LOC: LAB 06:02
PROVIDERS: Internal Medicine
DX: D64.89 Other specified anemias (principal); R30.0 Dysuria
CPT/HCPCS: 81000; 85027

== ENCOUNTER 2019-11-26 10:12 | Inpatient (IN) | payer OTHER | END 2019-12-27 09:13 | disposition still patient (30) | LOC: PAVB 10:12 | PROVIDERS: ADMIT Internal Medicine | CPT/HCPCS: 87635; U0002 ==

== ENCOUNTER 2019-11-29 07:38 | Outpatient (CLI) | payer OTHER | END 2019-11-29 19:23 | disposition home or self-care (01) | LOC: LAB 07:38 | DX: D50.8 Other iron deficiency anemias (principal); E03.8 Other specified hypothyroidism | CPT/HCPCS: 82728; 83540; 84443 ==

== ENCOUNTER 2019-12-27 10:58 | Inpatient (IN) | payer OTHER | END 2020-01-26 10:21 | disposition still patient (30) | LOC: PAVB 10:58 | PROVIDERS: ADMIT Internal Medicine | CPT/HCPCS: 87635; U0002 ==

== ENCOUNTER 2019-12-30 06:32 | Outpatient (CLI) | payer OTHER ==
[2019-12-30 07:00] LABS: PLATELET COUNT 192 K/uL (152-353)
[2019-12-30 07:10] LABS: POTASSIUM 4.2 mmol/L (3.6-5.2)
== END 2019-12-30 22:21 | disposition home or self-care (01) ==
LOC: LAB 06:32
PROVIDERS: Family Medicine
DX: I10 Essential (primary) hypertension (principal); D64.89 Other specified anemias; M32.8 Other forms of systemic lupus erythematosus
CPT/HCPCS: 80053; 83735; 85027

== ENCOUNTER 2020-01-26 11:26 | Inpatient (IN) | payer OTHER | END 2020-02-26 09:18 | disposition still patient (30) | LOC: PAVB 11:26 | PROVIDERS: ADMIT Internal Medicine | CPT/HCPCS: 87635; U0002 ==

== ENCOUNTER 2020-02-09 09:42 | Outpatient (CLI) | payer OTHER | END 2020-02-09 20:23 | disposition home or self-care (01) | LOC: MRI 09:42 | DX: M54.2 Cervicalgia (principal) ==

== ENCOUNTER 2020-02-26 09:46 | Inpatient (IN) | payer OTHER | END 2020-03-28 12:19 | disposition still patient (30) | LOC: PAVB 09:46 | PROVIDERS: ADMIT Internal Medicine | CPT/HCPCS: 87635; U0002 ==

== ENCOUNTER 2020-02-28 06:58 | Outpatient (CLI) | payer OTHER | END 2020-02-28 22:32 | disposition home or self-care (01) | LOC: LAB 06:58 | DX: G40.89 Other seizures (principal) | CPT/HCPCS: 82542 ==

== ENCOUNTER 2020-03-28 13:10 | Inpatient (IN) | payer OTHER | END 2020-04-27 11:07 | disposition still patient (30) | LOC: PAVB 13:10 | PROVIDERS: ADMIT Internal Medicine ==

== ENCOUNTER 2020-04-01 06:31 | Outpatient (CLI) | payer OTHER ==
[2020-04-01 07:00] LABS: PLATELET COUNT 162 K/uL (152-353)
[2020-04-01 07:06] LABS: POTASSIUM 3.6 mmol/L (3.6-5.2)
== END 2020-04-01 22:28 | disposition home or self-care (01) ==
LOC: LAB 06:31
PROVIDERS: Family Medicine
DX: R55 Syncope and collapse (principal); D64.89 Other specified anemias; M32.8 Other forms of systemic lupus erythematosus; M79.7 Fibromyalgia; G72.89 Other specified myopathies
CPT/HCPCS: 80053; 85027

== ENCOUNTER 2020-04-05 14:07 | Outpatient (CLI) | payer OTHER | END 2020-04-05 23:39 | disposition home or self-care (01) | LOC: LAB 14:07 | DX: M54.5 Low back pain (principal); M62.81 Muscle weakness (generalized); R55 Syncope and collapse; R82.998 Other abnormal findings in urine | CPT/HCPCS: 81000; 87088 ==

== ENCOUNTER 2020-04-27 13:52 | Inpatient (IN) | payer OTHER | END 2020-05-28 08:00 | disposition still patient (30) | LOC: PAVB 13:52 | PROVIDERS: ADMIT Family Medicine ==

== ENCOUNTER 2020-04-28 14:21 | Outpatient (CLI) | payer OTHER | END 2020-04-29 03:41 | disposition home or self-care (01) | LOC: MRI 14:21 | DX: G95.89 Other specified diseases of spinal cord (principal); G37.8 Other specified demyelinating diseases of central nervous system ==

== ENCOUNTER 2020-05-01 12:49 | Outpatient (CLI) | payer OTHER | END 2020-05-01 23:45 | disposition home or self-care (01) | LOC: MRI 12:49 | DX: G37.8 Other specified demyelinating diseases of central nervous system (principal); G95.89 Other specified diseases of spinal cord ==

== ENCOUNTER 2020-05-28 09:00 | Inpatient (IN) | payer OTHER | END 2020-06-27 10:00 | disposition still patient (30) | LOC: PAVB 09:00 | PROVIDERS: ADMIT Family Medicine; ATTEND Family Medicine ==

== ENCOUNTER 2020-05-31 08:10 | Outpatient (CLI) | payer OTHER | END 2020-05-31 21:31 | disposition home or self-care (01) | LOC: LAB 08:10 | PROVIDERS: Family Medicine | DX: E78.49 Other hyperlipidemia (principal); D50.8 Other iron deficiency anemias; E03.8 Other specified hypothyroidism | CPT/HCPCS: 80061; 82728; 83540; 84443 ==

== ENCOUNTER 2020-06-21 11:41 | Outpatient (CLI) | payer OTHER | END 2020-06-21 23:51 | disposition home or self-care (01) | LOC: LAB 11:41 | PROVIDERS: ATTEND Family Medicine | DX: L03.031 Cellulitis of right toe (principal) | CPT/HCPCS: 87070; 87205 ==

== ENCOUNTER 2020-06-27 11:23 | Inpatient (IN) | payer OTHER ==
[2020-07-27] MEDS ORDERED: COZAAR100 MG PO (17:54)
[2020-07-27] MEDS ORDERED: LIPITOR40 MG PO (17:54)
[2020-07-27] MEDS ORDERED: PRED5TAB3 PO (17:55)
[2020-07-27] MEDS ORDERED: EUTHYROX100 MCG PO (17:56)
[2020-07-27] MEDS ORDERED: XYZAL ALLERGY 245 MG PO (17:57)
[2020-07-27] MEDS ORDERED: ELIQUIS5 MG PO (17:58)
[2020-07-27] MEDS ORDERED: FAMO20TA4 PO (17:58)
[2020-07-27] MEDS ORDERED: LEVE250T PO (17:59)
[2020-07-27] MEDS ORDERED: MAG OXIDE400 MG PO (18:00)
[2020-07-27] MEDS ORDERED: METO-837 PO (18:01)
[2020-07-27] MEDS ORDERED: RISP0.25 PO (18:02)
[2020-07-27] MEDS ORDERED: TYLENOL325 MG PO (18:03)
[2020-07-27] MEDS ORDERED: DIPH25CA90 PO (18:05)
[2020-07-27] MEDS ORDERED: ARTIFICIAL TEAR1 SOL OPTH (18:05)
[2020-07-27] MEDS ORDERED: CEPACOL SORE1 LOZ MT (18:06)
[2020-07-27] MEDS ORDERED: CEPACOL SORE MT (18:07)
[2020-07-27] MEDS ORDERED: FLONASE AL50 MCG/ACT NAS (18:08)
[2020-07-27] MEDS ORDERED: MAGNSUS68 PO (18:09)
[2020-07-27] MEDS ORDERED: NITR0.4S2 SL (18:10)
[2020-07-27] MEDS ORDERED: ONDA4TAB3 PO (18:12)
[2020-07-27] MEDS ORDERED: TRAM50TA PO (18:12)
[2020-07-27] MEDS ORDERED: NYST100016 TOP (18:14)
== END 2020-07-28 09:04 | disposition still patient (30) ==
LOC: PAVB 11:23
PROVIDERS: ADMIT Family Medicine; ATTEND Family Medicine

== ENCOUNTER 2020-07-03 08:09 | Outpatient (CLI) | payer OTHER ==
[2020-07-03 09:45] LABS: PLATELET COUNT 174 K/uL (152-353)
== END 2020-07-03 19:12 | disposition home or self-care (01) ==
LOC: LAB 08:09
PROVIDERS: ATTEND Family Medicine
DX: I10 Essential (primary) hypertension (principal); M32.8 Other forms of systemic lupus erythematosus; D64.89 Other specified anemias
CPT/HCPCS: 80053; 83735; 85027

== ENCOUNTER 2020-07-08 13:57 | Emergency (ER) | payer OTHER ==
[~2020-07-08] VITALS: Ht 166.4 cm; Wt 101.6 kg
[2020-07-08 16:11] VITALS: BP 162/71; TEMP 97.5
== END 2020-07-08 17:22 ==
LOC: ED 13:57
DX: M54.5 Low back pain (principal)
CPT/HCPCS: 81000; 96372; 99283; J1885

== ENCOUNTER 2020-07-27 15:01 | Emergency (ER) | payer OTHER ==
[~2020-07-27] VITALS: Ht 166.4 cm; Wt 101.6 kg
[2020-07-27 15:30] LABS: PLATELET COUNT 192 K/uL (152-353)
[2020-07-27 15:51] LABS: POTASSIUM 3.5 mmol/L (3.6-5.2)
[2020-07-27 17:15] VITALS: BP 164/86; TEMP 97.8
[2020-07-27] MEDS ORDERED: LIPITOR40 MG PO (17:54)
[2020-07-27] MEDS ORDERED: COZAAR100 MG PO (17:54)
[2020-07-27] MEDS ORDERED: PRED5TAB3 PO (17:55)
[2020-07-27] MEDS ORDERED: EUTHYROX100 MCG PO (17:56)
[2020-07-27] MEDS ORDERED: XYZAL ALLERGY 245 MG PO (17:57)
[2020-07-27] MEDS ORDERED: FAMO20TA4 PO (17:58)
[2020-07-27] MEDS ORDERED: ELIQUIS5 MG PO (17:58)
[2020-07-27] MEDS ORDERED: LEVE250T PO (17:59)
[2020-07-27] MEDS ORDERED: MAG OXIDE400 MG PO (18:00)
[2020-07-27] MEDS ORDERED: METO-837 PO (18:01)
[2020-07-27] MEDS ORDERED: RISP0.25 PO (18:02)
[2020-07-27] MEDS ORDERED: TYLENOL325 MG PO (18:03)
[2020-07-27] MEDS ORDERED: DIPH25CA90 PO (18:05)
[2020-07-27] MEDS ORDERED: ARTIFICIAL TEAR1 SOL OPTH (18:05)
[2020-07-27] MEDS ORDERED: CEPACOL SORE1 LOZ MT (18:06)
[2020-07-27] MEDS ORDERED: CEPACOL SORE MT (18:07)
[2020-07-27] MEDS ORDERED: FLONASE AL50 MCG/ACT NAS (18:08)
[2020-07-27] MEDS ORDERED: MAGNSUS68 PO (18:09)
[2020-07-27] MEDS ORDERED: NITR0.4S2 SL (18:10)
[2020-07-27] MEDS ORDERED: ONDA4TAB3 PO (18:12)
[2020-07-27] MEDS ORDERED: TRAM50TA PO (18:12)
[2020-07-27] MEDS ORDERED: NYST100016 TOP (18:14)
== END 2020-07-27 17:15 | disposition still patient (30) ==
LOC: ED 15:01
PROVIDERS: Emergency Medicine Emergency Medical Services
DX: U07.1 COVID-19 (principal); F22 Delusional disorders; Z04.6 Encounter for general psychiatric examination, requested by authority
CPT/HCPCS: 80053; 85027; 87635; 93005; 99285; U0003

== ENCOUNTER 2020-07-28 09:34 | Inpatient (IN) | payer OTHER ==
[~2020-07-28] VITALS: Ht 165.1 cm; Wt 93.8 kg
[~2020-07-28 09:34] MED LIST changes: +ARTIFICIAL TEAR1 SOL OPTH; +CEPACOL SORE MT; +CEPACOL SORE1 LOZ MT; +COZAAR100 MG PO; +DIPH25CA90 PO; +ELIQUIS5 MG PO; +EUTHYROX100 MCG PO; +FAMO20TA4 PO; +FLONASE AL50 MCG/ACT NAS; +LEVE250T PO; +LIPITOR40 MG PO; +MAGNSUS68 PO; +METO-837 PO; +NITR0.4S2 SL; +NYST100016 TOP; +ONDA4TAB3 PO; +RISP0.25 PO; +TYLENOL325 MG PO; +XYZAL ALLERGY 245 MG PO
[2020-08-03] MEDS ORDERED: RISP0.25 PO ×2 (16:09)
[2020-08-05] MEDS ORDERED: XYZAL ALLERGY 245 MG PO (14:58)
[2020-08-05] MEDS ORDERED: NYSTCRE EX (15:04)
[2020-08-14] MEDS ORDERED: RISP0.25 PO (15:44)
[2020-08-14] MEDS ORDERED: ZINC220C4 PO (15:45)
== END 2020-08-28 14:57 | disposition still patient (30) ==
LOC: PAVB 09:34 → MED/SURG 08-03 16:33 → PAVB 08-03 16:33 → MED/SURG 08-03 16:33 → PAVB 08-28 14:57
PROVIDERS: ADMIT Family Medicine; ATTEND Family Medicine
CPT/HCPCS: 82550; 82728; 83735; 84100; 84443; 84484; 86140; 87040; 93005; J1450

== ENCOUNTER 2020-08-03 16:45 | Inpatient (IN) | payer OTHER ==
[~2020-08-03] VITALS: Ht 165.1 cm; Wt 99.5 kg
[2020-08-03 18:17] VITALS: BP 138/69; TEMP 99.2; Ht 165.1 cm; Wt 99.5 kg
[2020-08-03 19:53] VITALS: BP 171/67; TEMP 98.6
[2020-08-04] VITALS: BP 136/71; TEMP 97.8
[2020-08-04 03:44] VITALS: BP 136/65; TEMP 98.2
[2020-08-04 05:18] LABS: PLATELET COUNT 161 K/uL (152-353)
[2020-08-04 05:44] LABS: POTASSIUM 3.5 mmol/L (3.6-5.2)
[2020-08-04 08:00] VITALS: BP 144/62; TEMP 98.2
[2020-08-04 12:00] VITALS: BP 152/69; TEMP 98.4
[2020-08-04 16:00] VITALS: BP 154/69; TEMP 99.1
[2020-08-04 20:00] VITALS: BP 175/71; TEMP 99.3
[2020-08-05] VITALS: BP 143/67; TEMP 98.9
[2020-08-05 04:00] VITALS: BP 141/70; TEMP 99.5
[2020-08-05 06:40] LABS: PLATELET COUNT 177 K/uL (152-353)
[2020-08-05 06:55] LABS: POTASSIUM 3.1 mmol/L (3.6-5.2)
[2020-08-05 08:00] VITALS: BP 141/62; TEMP 99
[2020-08-05] MEDS ORDERED: XYZAL ALLERGY 245 MG PO (14:58)
[2020-08-05] MEDS ORDERED: NYSTCRE EX (15:04)
== END 2020-08-05 11:11 | disposition other institution (70) | DRG 179 ==
LOC: MED/SURG 16:45 → EDIP 16:46 → MED/SURG 16:47
PROVIDERS: ADMIT Family Medicine; ATTEND Family Medicine
DX: U07.1 COVID-19 (principal); I95.89 Other hypotension; R00.0 Tachycardia, unspecified; M79.7 Fibromyalgia; I10 Essential (primary) hypertension; E78.49 Other hyperlipidemia; K21.9 Gastro-esophageal reflux disease without esophagitis; E03.8 Other specified hypothyroidism; E86.0 Dehydration; R00.1 Bradycardia, unspecified; R63.0 Anorexia; F22 Delusional disorders; F28 Other psychotic disorder not due to a substance or known physiological condition; M32.9 Systemic lupus erythematosus, unspecified
CPT/HCPCS: 36415; 80053; 82550; 82728; 83735; 84100; 84443; 84484; 85027; 86140; 87040; 93005; J1450; J3475

== ENCOUNTER 2020-08-28 15:27 | Inpatient (IN) | payer OTHER ==
[~2020-08-28 15:27] MED LIST changes: +NYSTCRE EX; +ZINC220C4 PO
[2020-09-08] MEDS ORDERED: DIPH25CA90 PO (14:52)
[2020-09-08] MEDS ORDERED: NITROSTAT0.4 MG SL (14:54)
== END 2020-09-25 09:56 | disposition still patient (30) ==
LOC: PAVB 15:27
PROVIDERS: ADMIT Family Medicine; ATTEND Family Medicine

== ENCOUNTER 2020-08-30 07:35 | Outpatient (CLI) | payer OTHER | END 2020-08-30 21:10 | disposition home or self-care (01) | LOC: LAB 07:35 | PROVIDERS: ATTEND Family Medicine | DX: G40.89 Other seizures (principal) | CPT/HCPCS: 82542 ==

== ENCOUNTER 2020-09-08 11:55 | Emergency (ER) | payer OTHER ==
[~2020-09-08] VITALS: Ht 165.1 cm; Wt 95.3 kg
[2020-09-08 12:06] VITALS: BP 169/85; TEMP 99.9
[2020-09-08 12:16] LABS: PLATELET COUNT 215 K/uL (152-353)
[2020-09-08 13:03] LABS: POTASSIUM 3.5 mmol/L (3.6-5.2)
[2020-09-08] MEDS ORDERED: DIPH25CA90 PO (14:52)
[2020-09-08] MEDS ORDERED: NITROSTAT0.4 MG SL (14:54)
== END 2020-09-08 14:31 | disposition other institution (70) ==
LOC: ED 11:55
PROVIDERS: Family Medicine
DX: Z91.14 Patient's other noncompliance with medication regimen (principal); R44.2 Other hallucinations; Z11.59 Encounter for screening for other viral diseases; Z04.6 Encounter for general psychiatric examination, requested by authority
CPT/HCPCS: 80053; 85027; 87635; 93005; 99283; 99285; U0003

== ENCOUNTER 2020-09-25 10:35 | Inpatient (IN) | payer OTHER ==
[~2020-09-25 10:35] MED LIST changes: +NITROSTAT0.4 MG SL
[2020-09-28] MEDS ORDERED: DOCU100C10 PO (08:43)
[2020-09-28] MEDS ORDERED: PRED10TA27 PO (08:43)
[2020-09-28] MEDS ORDERED: ESCI10TA PO (08:43)
[2020-09-28] MEDS ORDERED: DIVA500T2 PO (08:43)
[2020-09-28] MEDS ORDERED: ARIPIPRAZOLE10 MG PO (08:44)
== END 2020-10-26 10:16 | disposition still patient (30) ==
LOC: PAVB 10:35
PROVIDERS: ADMIT Family Medicine; ATTEND Family Medicine

== ENCOUNTER 2020-10-26 10:49 | Inpatient (IN) | payer OTHER ==
[~2020-10-26 10:49] MED LIST changes: +ARIPIPRAZOLE10 MG PO; +DIVA500T2 PO; +ESCI10TA PO; +PRED10TA27 PO
[2020-11-13] MEDS ORDERED: ARIPIPRAZOLE10 MG PO (10:28)
[2020-11-13] MEDS ORDERED: DIVA500T2 PO (10:29)
[2020-11-13] MEDS ORDERED: STOOL SOFTENER100 MG PO (10:31)
[2020-11-13] MEDS ORDERED: LEXAPRO10 MG PO (10:33)
[2020-11-13] MEDS ORDERED: LIPITOR40 MG PO (10:35)
[2020-11-13] MEDS ORDERED: COZAAR100 MG PO (10:36)
[2020-11-13] MEDS ORDERED: PANTOPRAZOLE SO40 M1 PO (10:37)
[2020-11-13] MEDS ORDERED: PREDNISONE5 MG PO (10:38)
[2020-11-13] MEDS ORDERED: LEVO0.1T6 PO (10:39)
[2020-11-13] MEDS ORDERED: ELIQUIS5 MG PO (10:40)
[2020-11-13] MEDS ORDERED: METOPROLOL25 M1 PO (10:41)
[2020-11-13] MEDS ORDERED: PAIN RELIEF325 MG PO (10:42)
[2020-11-13] MEDS ORDERED: TYLENOL325 MG PO (10:43)
[2020-11-13] MEDS ORDERED: ARTIFICIAL TEAR1 SOL OPTH (10:45)
[2020-11-13] MEDS ORDERED: DIPH25CA90 PO (10:46)
[2020-11-13] MEDS ORDERED: CEPACOL SORE TH1 LO1 MT (10:46)
[2020-11-13] MEDS ORDERED: CEPACOL SORE MT (10:47)
[2020-11-13] MEDS ORDERED: FLONASE AL50 MCG/ACT NAS (10:48)
[2020-11-13] MEDS ORDERED: MILK OF MA400 MG/5 M PO (10:54)
[2020-11-13] MEDS ORDERED: NITROSTAT0.4 MG SL (10:55)
[2020-11-13] MEDS ORDERED: ONDA4TAB3 PO (10:56)
[2020-11-13] MEDS ORDERED: TRAM50TA PO (10:56)
== END 2020-11-25 10:52 | disposition still patient (30) ==
LOC: PAVB 10:49
PROVIDERS: ADMIT Family Medicine; ATTEND Family Medicine
CPT/HCPCS: J1335

== ENCOUNTER 2020-11-13 05:45 | Inpatient (IN) | payer OTHER ==
[~2020-11-13] VITALS: Ht 152.4 cm; Wt 91.7 kg
[2020-11-13] VITALS (10 sets, daily range): BP systolic 117–170; BP diastolic 57–81; TEMP 97.7–98.6; Ht 152.4 cm; Wt 91.7 kg
[2020-11-13 06:34] LABS: PLATELET COUNT 191 K/uL (152-353)
[2020-11-13 06:53] LABS: SODIUM 144 mmol/L (136-145)
[2020-11-13 06:58] LABS: POTASSIUM 2.2 mmol/L (3.6-5.2)
[2020-11-13] MEDS ORDERED: ARIPIPRAZOLE10 MG PO (10:28)
[2020-11-13] MEDS ORDERED: DIVA500T2 PO (10:29)
[2020-11-13] MEDS ORDERED: STOOL SOFTENER100 MG PO (10:31)
[2020-11-13] MEDS ORDERED: LEXAPRO10 MG PO (10:33)
[2020-11-13] MEDS ORDERED: LIPITOR40 MG PO (10:35)
[2020-11-13] MEDS ORDERED: COZAAR100 MG PO (10:36)
[2020-11-13] MEDS ORDERED: PANTOPRAZOLE SO40 M1 PO (10:37)
[2020-11-13] MEDS ORDERED: PREDNISONE5 MG PO (10:38)
[2020-11-13] MEDS ORDERED: LEVO0.1T6 PO (10:39)
[2020-11-13] MEDS ORDERED: ELIQUIS5 MG PO (10:40)
[2020-11-13] MEDS ORDERED: METOPROLOL25 M1 PO (10:41)
[2020-11-13] MEDS ORDERED: PAIN RELIEF325 MG PO (10:42)
[2020-11-13] MEDS ORDERED: TYLENOL325 MG PO (10:43)
[2020-11-13] MEDS ORDERED: ARTIFICIAL TEAR1 SOL OPTH (10:45)
[2020-11-13] MEDS ORDERED: DIPH25CA90 PO (10:46)
[2020-11-13] MEDS ORDERED: CEPACOL SORE TH1 LO1 MT (10:46)
[2020-11-13] MEDS ORDERED: CEPACOL SORE MT (10:47)
[2020-11-13] MEDS ORDERED: FLONASE AL50 MCG/ACT NAS (10:48)
[2020-11-13] MEDS ORDERED: MILK OF MA400 MG/5 M PO (10:54)
[2020-11-13] MEDS ORDERED: NITROSTAT0.4 MG SL (10:55)
[2020-11-13] MEDS ORDERED: TRAM50TA PO (10:56)
[2020-11-13] MEDS ORDERED: ONDA4TAB3 PO (10:56)
[2020-11-13 19:46] LABS: PLATELET COUNT 158 K/uL (152-353)
[2020-11-13 20:22] LABS: POTASSIUM 2.7 mmol/L (3.6-5.2)
--- NOTE | 2020-11-13 23:24 | NUR ---
LATE ENTRY, 2100 PATIENT K+ LABS CAME BACK AND THEY WERE 2.7. INFORMED BY SPARK PLUG ASSEMBLER OF CBC, CMP, MG AND PHOS. ELECTROLYETE PROTOCOL STARTED, NO FURTHER ORDERS AT THIS TIME
--- NOTE | 2020-11-14 01:25 | NUR ---
PT IS NOT TOLERATING POTASSIUM INFUSION WELL. PT COMPLAINS OF BURNING. INFUSION HAS BEEN DECREASED IN RATE. INFORMED SANDIE DESHPANDE RN CN AND PT ABLE TO TOLERATE INFUSION AT SLOWER RATE.
--- NOTE | 2020-11-14 01:35 | NUR ---
MEDICATIONS WERE PUT IN BY AM SHIFT BUT WERE NOT ORDERED FOR REVIEW FROM MD. REVIEWED MEDICATIONS AND TRIGGERED MEDICATIONS TO BE REVIEWED BY IN AM. REPORTED TO IAN DESHPANDE RN.
--- NOTE | 2020-11-14 03:29 | NUR ---
PT IS RECEIVING PREMIX POTASSIUM 10 JUVENCIO IN 100 ML OF NS. HAD TO TURN RATE DOWN. PT WITH COMPLAINTS OF POTASSIUM BURNING. PT IS STILL ON 2ND INFUSION BAG.
[2020-11-14 03:50] VITALS: BP 131/63; TEMP 97.9
--- NOTE | 2020-11-14 03:52 | NUR ---
PT IS ON 3RD BAG OF PREMIX KCL 10 MEQ INFUSION. PT IS NO LONGER COMPLAINING OF IV BURNING.
[2020-11-14 08:00] VITALS: BP 136/63; TEMP 97.5
[2020-11-14 09:36] LABS: PLATELET COUNT 155 K/uL (152-353)
[2020-11-14 10:09] LABS: POTASSIUM 2.6 mmol/L (3.6-5.2)
[2020-11-14 12:00] VITALS: BP 162/67; TEMP 97.5
[2020-11-14 16:00] VITALS: BP 154/71; TEMP 98.5
[2020-11-14 20:12] VITALS: BP 138/57; TEMP 98.7
--- NOTE | 2020-11-14 22:54 | NUR ---
PT WAS MEDICATED WITH TORADOL ORDERED FROM DR. ASHRAF.
[2020-11-15 00:06] VITALS: BP 148/71; TEMP 98.7
--- NOTE | 2020-11-15 01:47 | NUR ---
PT RESTING WITH EYES CLOSED.
[2020-11-15 04:13] VITALS: BP 127/62; TEMP 98.2
--- NOTE | 2020-11-15 05:42 | NUR ---
PT HAS BEEN ABLE TO REST THIS PM SHIFT. PT HAS VOIDED X6 AT PRESENT TIME.
[2020-11-15 06:10] LABS: PLATELET COUNT 152 K/uL (152-353)
[2020-11-15 06:44] LABS: POTASSIUM 2.1 mmol/L (3.6-5.2)
[2020-11-15 08:00] VITALS: BP 104/44; TEMP 98.1
--- NOTE | 2020-11-15 09:25 | NUR ---
SPOKE WITH DR. ASHRAF, NOTIFIED HER OF PT'S AM LABS, VERIFIED WITH HER HOW MUCH POTASSIUM PT PREVIOUSLY REC'D. REC'D ORDERS TO GIVE K-RIDER 40MEQ X1 DOSE NOW, GIVE POTASSIUM 40MEQ PO X1 DOSE NOW, SHE CAN TAKE ANOTHER POTASSIUM 40MEQ PO AT 1800 THIS EVENING, SEND BACK TO [facility] AFTER K-RIDER, HAVE PHARMACY VERIFY ON PT'S HOME MEDS THAT SHE IS NOT TAKING ANYTHING TO CAUSE POTASSIUM LOSS. SPOKE WITH ESTUARDO, PHD NONE OF PT'S CURRENT HOME MEDS WILL CAUSE POTASSIUM LOSS.
--- NOTE | 2020-11-15 11:49 | NUR ---
NOTIFIED HONG NIELSEN AT [facility] OF PT BEING DISCHARGED TODAY.
[2020-11-15 12:00] VITALS: BP 144/63; TEMP 97.6
--- NOTE | 2020-11-15 14:55 | NUR ---
REC'D CALL FROM DR. ASHRAF THAT PT'S FAMILY CALLED HONG NIELSEN AT [facility] STATING PT IS CONFUSED AND SAYING THINGS THAT ARE NOT TRUE, DR. ASHRAF STATES "PT'S FAMILY WANTS HER TO GO TO [facility], I DID NOT SEE ANY CONFUSION LAST NIGHT WHEN I SEEN HER, SO MAKE SURE THAT'S WHAT THEY WANT" RUTH LITTLE RN AND MYSELF HAVE BEEN IN PT'S ROOM MULTIPLE TIMES TODAY NO CONFUSION OR ODD STATEMENTS HAVE BEEN HEARD FROM PT TODAY. INFORMED DR. ASHRAF SAP FUNCTIONAL ANALYST REPORTS PT WAS ALERT AND ORIENTED ALL NIGHT. PT NOTED TO HAVE A FAMILY MEMBER AT BEDSIDE ALL DAY UNTIL ABOUT 20 MINUTES AGO. ATTEMPTED TO CALL PT'S GRANDDAUGHTER MEY WITH NO ANSWER AT THIS TIME. WILL CON'T TO TRY TO CALL.
--- NOTE | 2020-11-15 15:40 | NUR ---
KAYLEIGH INFORMED NURSE FROM [facility] UNABLE TO REACH FMAILY PER MD REQUEST. FAMILY MEMEBER ATTEMPTED TO BE REACHED 3 DIFFERENT TIMES WITH MESSAGES LEFT. NO RETURN CALL BACK FROM [facility]. ORDERS REC'D FROM DR ASHRAF VIA PHONE TO GO AHEAD AND SEND PT BACK TO [facility]. PAC CALLED AND SPOKE TO MORALES WHO SAID THAT DR VICTOR HAD SPOKEN TO HER AND SAID PT WOULD BE TRANSFERED FROM [facility] TO [facility]. PT STILL AWAKE AND ALERT. NO PROBLEMS NOTED NO CONFUSION OR COMBATIVNESS NOTED THIS [facility] STAY. NEW ORDERS REC'D FROM DR ASHRAF TO SEND PT BACK TO [facility]
--- NOTE | 2020-11-15 16:29 | NUR ---
EMS HERE TO TAKE PT BACK TO [facility]. 20G IV TO RAC REMOVED TIP INTACT 22G TO RFA REMOVED AT THIS TIME TIP INACT NO REDNESS OR SWELLING NOTED TO EITHER SITE PT TOLERATED WELL. TELEMETRY REMOVED. PT ASSISSTED TO STRETCHER AND TRANSFERRED BACK TO [place] VIA EMS. REPORT GIVEN TO HONG NIELSEN VIA RUTH LITTLE RN
== END 2020-11-15 16:25 | DRG 690 ==
LOC: ED 05:45 → MED/SURG 08:25
PROVIDERS: Emergency Medicine Emergency Medical Services; ADMIT Family Medicine; ATTEND Family Medicine
DX: N39.0 Urinary tract infection, site not specified (principal); G40.802 Other epilepsy, not intractable, without status epilepticus; E87.6 Hypokalemia; R41.82 Altered mental status, unspecified; I10 Essential (primary) hypertension; D64.89 Other specified anemias; G89.29 Other chronic pain; F03.90 Unspecified dementia, unspecified severity, without behavioral disturbance, psychotic disturbance, mood disturbance, and anxiety; B96.20 Unspecified Escherichia coli [E. coli] as the cause of diseases classified elsewhere; B96.4 Proteus (mirabilis) (morganii) as the cause of diseases classified elsewhere
CPT/HCPCS: 36415; 80053; 81000; 83735; 84100; 84484; 85007; 85027; 87077; 87086; 87088; 87186; 87635; 93005; 96360; 96365; 96366; 99284; J0696; J1885; J3475; J3480; U0003

== ENCOUNTER 2020-11-16 08:21 | Outpatient (CLI) | payer OTHER ==
[~2020-11-16 08:21] MED LIST changes: +CEPACOL SORE TH1 LO1 MT; +LEVO0.1T6 PO; +LEXAPRO10 MG PO; +METOPROLOL25 M1 PO; +MILK OF MA400 MG/5 M PO; +PAIN RELIEF325 MG PO; +PANTOPRAZOLE SO40 M1 PO; +PREDNISONE5 MG PO; +STOOL SOFTENER100 MG PO
[2020-11-16 08:44] LABS: POTASSIUM 4.7 mmol/L (3.6-5.2)
== END 2020-11-16 19:33 | disposition home or self-care (01) ==
LOC: LAB 08:21
PROVIDERS: ATTEND Family Medicine
DX: E87.6 Hypokalemia (principal)
CPT/HCPCS: 83735; 84132

== ENCOUNTER 2020-11-20 13:19 | Emergency (ER) | payer OTHER ==
[~2020-11-20] VITALS: Ht 165.1 cm; Wt 90.4 kg
[2020-11-20 14:45] LABS: PLATELET COUNT 231 K/uL (152-353)
[2020-11-20 14:46] LABS: POTASSIUM 3.6 mmol/L (3.6-5.2); SODIUM 139 mmol/L (136-145)
[2020-11-20 18:00] VITALS: BP 172/84
== END 2020-11-20 18:45 | disposition home or self-care (01) ==
LOC: ED 13:23
PROVIDERS: Emergency Medicine Emergency Medical Services
DX: R55 Syncope and collapse (principal)
CPT/HCPCS: 80053; 83880; 84484; 85027; 93005; 96360; 96361; 96375; 99284; J2930

== ENCOUNTER 2020-11-25 11:20 | Inpatient (IN) | payer OTHER | END 2020-12-26 14:40 | disposition still patient (30) | LOC: PAVB 11:20 | PROVIDERS: ADMIT Family Medicine; ATTEND Family Medicine ==

== ENCOUNTER 2020-11-27 10:21 | Outpatient (CLI) | payer OTHER | END 2020-11-27 19:31 | disposition home or self-care (01) | LOC: LAB 10:21 | PROVIDERS: ATTEND Family Medicine | DX: D50.8 Other iron deficiency anemias (principal); E03.8 Other specified hypothyroidism | CPT/HCPCS: 82728; 83540; 84443 ==

== ENCOUNTER 2020-12-06 10:33 | Outpatient (CLI) | payer OTHER ==
[2020-12-06 10:59] LABS: POTASSIUM 3.2 mmol/L (3.6-5.2)
== END 2020-12-06 20:43 | disposition home or self-care (01) ==
LOC: LAB 10:33
PROVIDERS: ATTEND Family Medicine
DX: R79.89 Other specified abnormal findings of blood chemistry (principal)
CPT/HCPCS: 83735; 84132

== ENCOUNTER 2020-12-12 17:42 | Outpatient (CLI) | payer OTHER ==
[2020-12-12 19:10] LABS: PLATELET COUNT 184 K/uL (152-353)
== END 2020-12-12 19:29 | disposition home or self-care (01) ==
LOC: LAB 17:42
PROVIDERS: ATTEND Family Medicine
DX: E03.8 Other specified hypothyroidism (principal); Z51.81 Encounter for therapeutic drug level monitoring; R56.9 Unspecified convulsions; R63.8 Other symptoms and signs concerning food and fluid intake
CPT/HCPCS: 80164; 84134; 84443; 85027

== ENCOUNTER 2020-12-16 10:01 | Outpatient (CLI) | payer OTHER | END 2020-12-16 23:50 | disposition home or self-care (01) | LOC: RAD 10:01 | PROVIDERS: ATTEND Family Medicine | DX: M25.512 Pain in left shoulder (principal); M25.511 Pain in right shoulder ==

== ENCOUNTER 2020-12-18 08:54 | Outpatient (CLI) | payer OTHER | END 2020-12-18 20:56 | disposition home or self-care (01) | LOC: LAB 08:54 → RESP 08:54 | PROVIDERS: ATTEND Family Medicine | DX: R55 Syncope and collapse (principal); R56.9 Unspecified convulsions; M81.0 Age-related osteoporosis without current pathological fracture; M85.88 Other specified disorders of bone density and structure, other site | CPT/HCPCS: 82310 ==

== ENCOUNTER 2020-12-21 01:09 | Emergency (ER) | payer OTHER ==
[~2020-12-21] VITALS: Ht 165.1 cm; Wt 88.0 kg
[2020-12-21 02:35] LABS: PLATELET COUNT 165 K/uL (152-353)
[2020-12-21 02:46] LABS: POTASSIUM 2.3 mmol/L (3.6-5.2)
[2020-12-21 05:00] VITALS: BP 132/57; TEMP 95.1
== END 2020-12-21 05:00 | disposition short-term general hospital (02) ==
LOC: ED 01:09
PROVIDERS: Family Medicine
PROC: 0T9B70Z Drainage of Bladder with Drainage Device, Via Natural or Artificial Opening (ICD-10-PCS; principal; 2020-12-21)
DX: I95.89 Other hypotension (principal); R41.82 Altered mental status, unspecified; I48.91 Unspecified atrial fibrillation
CPT/HCPCS: 36415; 36600; 51702; 80053; 81000; 82550; 82553; 82805; 83605; 84443; 84484; 85007; 85027; 87040; 87088; 93005; 96360; 96361; 96365; 96366; 99284; J3490

== ENCOUNTER 2020-12-26 15:24 | Inpatient (IN) | payer OTHER | END 2021-01-25 08:00 | disposition still patient (30) | LOC: PAVB 15:24 | PROVIDERS: ADMIT Family Medicine; ATTEND Family Medicine ==

== ENCOUNTER 2021-01-16 21:58 | Emergency (ER) | payer OTHER ==
[2021-01-28 08:38] LABS: PLATELET COUNT 226 K/uL (152-353)
[2021-01-28 08:39] LABS: POTASSIUM 2.5 mmol/L (3.6-5.2); SODIUM 142 mmol/L (136-145)
== END 2021-01-17 03:30 ==
LOC: ED 21:58
PROVIDERS: Family Medicine
DX: N39.0 Urinary tract infection, site not specified (principal); E87.6 Hypokalemia; B37.0 Candidal stomatitis; Z20.822 Contact with and (suspected) exposure to COVID-19
CPT/HCPCS: 80053; 81000; 83605; 84484; 85027; 87040; 87077; 87086; 87088; 87186; 87635; 93005; 96360; 96365; 99284; U0003

== ENCOUNTER 2021-01-25 09:00 | Inpatient (IN) | payer OTHER | END 2021-02-25 08:00 | disposition still patient (30) | LOC: PAVB 09:00 | PROVIDERS: ADMIT Family Medicine; ATTEND Family Medicine ==

== ENCOUNTER 2021-02-25 09:00 | Inpatient (IN) | payer OTHER | END 2021-03-28 10:35 | disposition still patient (30) | LOC: PAVB 09:00 | PROVIDERS: ADMIT Family Medicine; ATTEND Family Medicine ==

== ENCOUNTER 2021-03-28 08:16 | Outpatient (CLI) | payer OTHER | END 2021-03-28 23:00 | disposition home or self-care (01) | LOC: LAB 08:16 | PROVIDERS: ATTEND Family Medicine | DX: N39.0 Urinary tract infection, site not specified (principal) | CPT/HCPCS: 81000; 87077; 87086; 87088; 87186 ==

== ENCOUNTER 2021-03-28 13:37 | Inpatient (IN) | payer OTHER | END 2021-04-27 08:46 | disposition still patient (30) | LOC: PAVB 13:37 | PROVIDERS: ADMIT Family Medicine; ATTEND Family Medicine ==

== ENCOUNTER 2021-04-04 11:32 | Emergency (ER) | payer OTHER ==
[~2021-04-04] VITALS: Ht 165.1 cm; Wt 84.4 kg
[2021-04-04 11:32] VITALS: BP 98/54; TEMP 97.9
[2021-04-04 12:33] LABS: PLATELET COUNT 191 K/uL (152-353)
== END 2021-04-04 13:55 ==
LOC: ED 11:36
PROVIDERS: Family Medicine
DX: M79.18 Myalgia, other site (principal); M54.2 Cervicalgia; R56.9 Unspecified convulsions; Z98.890 Other specified postprocedural states
CPT/HCPCS: 80053; 85027; 96372; 99283; J1885

== ENCOUNTER 2021-04-05 11:09 | Outpatient (CLI) | payer OTHER | END 2021-04-05 19:11 | disposition home or self-care (01) | LOC: LAB 11:09 | PROVIDERS: ATTEND Family Medicine | DX: G40.89 Other seizures (principal) | CPT/HCPCS: 82542 ==

== ENCOUNTER 2021-04-18 07:07 | Outpatient (CLI) | payer OTHER ==
[2021-04-18 08:07] LABS: PLATELET COUNT 198 K/uL (152-353)
== END 2021-04-18 20:03 | disposition home or self-care (01) ==
LOC: LAB 07:07
PROVIDERS: ATTEND Family Medicine
DX: R41.82 Altered mental status, unspecified (principal); R82.998 Other abnormal findings in urine
CPT/HCPCS: 81000; 85027; 87077; 87086; 87088; 87186

== ENCOUNTER 2021-04-25 07:56 | Outpatient (CLI) | payer OTHER | END 2021-04-25 18:59 | disposition home or self-care (01) | LOC: LAB 07:56 | PROVIDERS: ATTEND Family Medicine | DX: E03.8 Other specified hypothyroidism (principal) | CPT/HCPCS: 84443 ==

== ENCOUNTER 2021-05-28 07:35 | Outpatient (CLI) | payer OTHER | END 2021-05-28 19:17 | disposition home or self-care (01) | LOC: LAB 07:35 | PROVIDERS: ATTEND Family Medicine | DX: E78.49 Other hyperlipidemia (principal); E03.8 Other specified hypothyroidism; R79.89 Other specified abnormal findings of blood chemistry | CPT/HCPCS: 80061; 82310; 82728; 83540; 84443 ==

== ENCOUNTER 2021-05-30 07:14 | Outpatient (CLI) | payer OTHER ==
[~2021-05-30] VITALS: Ht 165.1 cm; Wt 83.6 kg
[2021-05-30 08:32] LABS: POTASSIUM 3.4 mmol/L (3.6-5.2)
[2021-05-30 09:40] VITALS: BP 150/73; TEMP 98
== END 2021-05-30 22:34 | disposition home or self-care (01) ==
LOC: INF 07:14
PROVIDERS: ATTEND Family Medicine
DX: D50.9 Iron deficiency anemia, unspecified (principal)
CPT/HCPCS: 80053; 84134; 96365; Q0138

== ENCOUNTER 2021-06-05 14:59 | Outpatient (CLI) | payer OTHER ==
[2021-06-05 15:08] LABS: PLATELET COUNT 309 K/uL (152-353)
== END 2021-06-05 19:26 | disposition home or self-care (01) ==
LOC: LAB 14:59
PROVIDERS: ATTEND Family Medicine
DX: Z01.818 Encounter for other preprocedural examination (principal)
CPT/HCPCS: 36415; 85027

== ENCOUNTER 2021-06-08 09:19 | Outpatient (CLI) | payer OTHER ==
[~2021-06-08] VITALS: Ht 165.1 cm; Wt 83.6 kg
== END 2021-06-08 20:49 | disposition home or self-care (01) ==
LOC: INF 09:19
PROVIDERS: ATTEND Family Medicine
DX: D50.9 Iron deficiency anemia, unspecified (principal)
CPT/HCPCS: 96365; Q0138

== ENCOUNTER 2021-06-27 10:53 | Inpatient (IN) | payer OTHER | END 2021-07-28 08:24 | disposition still patient (30) | LOC: PAVB 10:53 | PROVIDERS: ADMIT Family Medicine; ATTEND Family Medicine ==

== ENCOUNTER 2021-06-29 07:15 | Outpatient (CLI) | payer OTHER ==
[2021-06-29 07:51] LABS: PLATELET COUNT 198 K/uL (152-353)
[2021-06-29 08:10] LABS: POTASSIUM 3.7 mmol/L (3.6-5.2)
== END 2021-06-29 18:57 | disposition home or self-care (01) ==
LOC: LAB 07:15
PROVIDERS: ATTEND Family Medicine
DX: D50.8 Other iron deficiency anemias (principal); M32.8 Other forms of systemic lupus erythematosus; I10 Essential (primary) hypertension
CPT/HCPCS: 80053; 85027

== ENCOUNTER 2021-07-17 12:05 | Outpatient (CLI) | payer OTHER | END 2021-07-17 18:52 | disposition home or self-care (01) | LOC: RAD 12:05 | PROVIDERS: ATTEND Family Medicine | DX: R91.1 Solitary pulmonary nodule (principal) ==

== ENCOUNTER 2021-07-28 09:04 | Inpatient (IN) | payer OTHER | END 2021-08-28 09:33 | disposition still patient (30) | LOC: PAVB 09:04 | PROVIDERS: ADMIT Family Medicine; ATTEND Family Medicine ==

== ENCOUNTER 2021-08-28 15:43 | Inpatient (IN) | payer OTHER | END 2021-09-25 09:01 | disposition still patient (30) | LOC: PAVB 15:43 | PROVIDERS: ADMIT Family Medicine; ATTEND Family Medicine ==

== ENCOUNTER 2021-09-25 12:54 | Inpatient (IN) | payer OTHER | END 2021-10-26 08:43 | disposition still patient (30) | LOC: PAVB 12:54 | PROVIDERS: ADMIT Family Medicine; ATTEND Family Medicine ==

== ENCOUNTER 2021-10-26 09:56 | Inpatient (IN) | payer OTHER | END 2021-11-25 10:26 | disposition still patient (30) | LOC: PAVB 09:56 | PROVIDERS: ADMIT Family Medicine; ATTEND Family Medicine ==

== ENCOUNTER 2021-11-25 01:36 | Inpatient (IN) | payer OTHER | END 2021-12-26 09:41 | disposition still patient (30) | LOC: PAVB 01:36 | PROVIDERS: ADMIT Family Medicine; ATTEND Family Medicine ==

== ENCOUNTER 2021-11-26 09:51 | Outpatient (CLI) | payer OTHER | END 2021-11-26 18:56 | disposition home or self-care (01) | LOC: LAB 09:51 | PROVIDERS: ATTEND Family Medicine | DX: D50.8 Other iron deficiency anemias (principal); E03.8 Other specified hypothyroidism | CPT/HCPCS: 82310; 82728; 83540; 84443 ==

== ENCOUNTER 2021-12-20 05:03 | Outpatient (CLI) | payer OTHER | END 2021-12-20 19:19 | disposition home or self-care (01) | LOC: LAB 05:03 | PROVIDERS: ATTEND Family Medicine | DX: E83.50 Unspecified disorder of calcium metabolism (principal); M19.90 Unspecified osteoarthritis, unspecified site | CPT/HCPCS: 82310 ==

== ENCOUNTER 2021-12-26 08:55 | Outpatient (CLI) | payer OTHER ==
[2021-12-26 09:49] LABS: PLATELET COUNT 155 K/uL (152-353)
[2021-12-26 09:52] LABS: POTASSIUM 3.5 mmol/L (3.6-5.2)
== END 2021-12-26 19:09 | disposition home or self-care (01) ==
LOC: LAB 08:55
PROVIDERS: ATTEND Family Medicine
DX: I10 Essential (primary) hypertension (principal)
CPT/HCPCS: 80053; 85027

== ENCOUNTER 2021-12-26 14:38 | Inpatient (IN) | payer OTHER | END 2022-01-25 09:08 | disposition still patient (30) | LOC: PAVB 14:38 | PROVIDERS: ADMIT Family Medicine; ATTEND Family Medicine ==

== ENCOUNTER 2022-01-25 11:48 | Inpatient (IN) | payer OTHER | END 2022-02-25 09:18 | disposition still patient (30) | LOC: PAVB 11:48 | PROVIDERS: ADMIT Family Medicine; ATTEND Family Medicine ==

== ENCOUNTER 2022-02-25 12:10 | Inpatient (IN) | payer OTHER | END 2022-03-28 09:05 | disposition still patient (30) | LOC: PAVB 12:10 | PROVIDERS: ADMIT Family Medicine; ATTEND Family Medicine ==

== ENCOUNTER 2022-03-28 12:13 | Inpatient (IN) | payer OTHER ==
[~2022-03-28 12:13] MED LIST changes: -EUTHYROX100 MCG PO; +LEVO-T175 MCG PO; +PANTOPRAZOLE 40MG TA PO; -PANTOPRAZOLE SO40 M1 PO; +TRAMTAB2 PO
[2022-04-18] MEDS ORDERED: FERROUS SULF325 MG PO (16:00)
[2022-04-18] MEDS ORDERED: LEVE500T5 PO (16:01)
[2022-04-18] MEDS ORDERED: LISI10TA11 PO (16:03)
[2022-04-18] MEDS ORDERED: CLOP75TA2 PO (16:05)
[2022-04-18] MEDS ORDERED: DENO60SO SC (16:07)
[2022-04-18] MEDS ORDERED: NYST100010 TOP (16:14)
[2022-04-18] MEDS ORDERED: NYST100016 TOP (16:16)
[2022-04-18] MEDS ORDERED: ARTIFICIAL TEARS OPTH (16:18)
[2022-04-18] MEDS ORDERED: DIVA125C PO (16:20)
[2022-04-18] MEDS ORDERED: MILK OF MA400 MG/5 M PO (16:21)
[2022-04-18] MEDS ORDERED: TYLENOL325 MG PO (16:25)
[2022-04-21] MEDS ORDERED: MAGN400T4 PO (10:16)
[2022-04-21] MEDS ORDERED: KLOR-CON M1010 MEQ PO (10:18)
== END 2022-04-27 10:29 | disposition still patient (30) ==
LOC: PAVB 12:13
PROVIDERS: ADMIT Family Medicine; ATTEND Family Medicine

== ENCOUNTER 2022-04-18 07:53 | Inpatient (IN) | payer OTHER ==
[~2022-04-18] VITALS: Ht 165.1 cm; Wt 93.4 kg
[2022-04-18 08:19] LABS: PLATELET COUNT 192 K/uL (152-353)
[2022-04-18 08:55] LABS: POTASSIUM 2.1 mmol/L (3.6-5.2)
[2022-04-18 14:01] VITALS: BP 112/46; TEMP 97.7; Ht 165.1 cm; Wt 93.4 kg
[2022-04-18 16:00] VITALS: BP 112/55; TEMP 97.7
[2022-04-18] MEDS ORDERED: FERROUS SULF325 MG PO (16:00)
[2022-04-18] MEDS ORDERED: LEVE500T5 PO (16:01)
[2022-04-18] MEDS ORDERED: LISI10TA11 PO (16:03)
[2022-04-18] MEDS ORDERED: CLOP75TA2 PO (16:05)
[2022-04-18] MEDS ORDERED: DENO60SO SC (16:07)
[2022-04-18] MEDS ORDERED: NYST100010 TOP (16:14)
[2022-04-18] MEDS ORDERED: NYST100016 TOP (16:16)
[2022-04-18] MEDS ORDERED: ARTIFICIAL TEARS OPTH (16:18)
[2022-04-18] MEDS ORDERED: DIVA125C PO (16:20)
[2022-04-18] MEDS ORDERED: MILK OF MA400 MG/5 M PO (16:21)
[2022-04-18] MEDS ORDERED: TYLENOL325 MG PO (16:25)
[2022-04-18 20:00] VITALS: BP 105/60; TEMP 97.6
[2022-04-19] VITALS: BP 118/61; TEMP 98.5
[2022-04-19 04:00] VITALS: BP 112/56; TEMP 98.6
[2022-04-19 04:38] LABS: PLATELET COUNT 192 K/uL (152-353)
[2022-04-19 04:47] LABS: POTASSIUM 3.6 mmol/L (3.6-5.2)
[2022-04-19 08:00] VITALS: BP 152/78; TEMP 98.7
[2022-04-19 12:00] VITALS: BP 150/66; TEMP 98.7
[2022-04-19 16:00] VITALS: BP 157/80; TEMP 98.6
[2022-04-19 19:55] VITALS: BP 119/46; TEMP 98.3
[2022-04-20 00:01] VITALS: BP 97/50; TEMP 98.9
[2022-04-20 04:00] VITALS: BP 98/42; TEMP 98.9
[2022-04-20 06:01] LABS: POTASSIUM 2.7 mmol/L (3.6-5.2)
[2022-04-20 06:05] LABS: PLATELET COUNT 182 K/uL (152-353)
[2022-04-20 08:00] VITALS: BP 106/49; TEMP 99
[2022-04-20 12:00] VITALS: BP 102/46; TEMP 98.5
[2022-04-20 16:00] VITALS: BP 132/59; TEMP 97.8
[2022-04-20 20:00] VITALS: BP 135/67; TEMP 98
[2022-04-21 00:02] VITALS: BP 112/51; TEMP 98
[2022-04-21 04:00] VITALS: BP 115/53; TEMP 99
[2022-04-21 05:50] LABS: POTASSIUM 4.1 mmol/L (3.6-5.2)
[2022-04-21 08:00] VITALS: BP 111/56; TEMP 98.5
[2022-04-21] MEDS ORDERED: MAGN400T4 PO (10:16)
[2022-04-21] MEDS ORDERED: KLOR-CON M1010 MEQ PO (10:18)
== END 2022-04-21 11:10 | DRG 641 ==
LOC: LAB 07:53 → MED/SURG 10:35
PROVIDERS: Family Medicine; ADMIT Internal Medicine; ATTEND Internal Medicine
DX: E87.6 Hypokalemia (principal); G40.802 Other epilepsy, not intractable, without status epilepticus; E83.42 Hypomagnesemia; M32.8 Other forms of systemic lupus erythematosus; R19.7 Diarrhea, unspecified; R79.1 Abnormal coagulation profile; I25.10 Atherosclerotic heart disease of native coronary artery without angina pectoris; F03.90 Unspecified dementia, unspecified severity, without behavioral disturbance, psychotic disturbance, mood disturbance, and anxiety; I10 Essential (primary) hypertension; E03.8 Other specified hypothyroidism; M79.7 Fibromyalgia; E78.49 Other hyperlipidemia
CPT/HCPCS: 36415; 80048; 80053; 83735; 83880; 84443; 84550; 85027; 85379; 86140; 87635; J1650; J3475; U0003

== ENCOUNTER 2022-04-24 20:50 | Outpatient (CLI) | payer OTHER ==
[~2022-04-24 20:50] MED LIST changes: +ARTIFICIAL TEARS OPTH; +CLOP75TA2 PO; +DENO60SO SC; +DIVA125C PO; +FERROUS SULF325 MG PO; +KLOR-CON M1010 MEQ PO; +LEVE500T5 PO; +MAGN400T4 PO; +NYST100010 TOP
== END 2022-04-24 23:18 | disposition home or self-care (01) ==
LOC: LAB 20:50
PROVIDERS: ATTEND Family Medicine
DX: R19.7 Diarrhea, unspecified (principal)
CPT/HCPCS: 87015; 87045; 87324; 87328; 87329; 87449; 87899

== ENCOUNTER 2022-04-25 07:51 | Outpatient (CLI) | payer OTHER ==
[2022-04-25 08:40] LABS: POTASSIUM 4.4 mmol/L (3.6-5.2)
== END 2022-04-25 19:21 | disposition home or self-care (01) ==
LOC: LAB 07:51
PROVIDERS: ATTEND Family Medicine
DX: R79.89 Other specified abnormal findings of blood chemistry (principal); I25.10 Atherosclerotic heart disease of native coronary artery without angina pectoris; I10 Essential (primary) hypertension; M19.90 Unspecified osteoarthritis, unspecified site
CPT/HCPCS: 80048; 83735; 84100; 84550; 85379; 86140

== ENCOUNTER 2022-04-27 12:54 | Inpatient (IN) | payer OTHER | END 2022-05-28 14:50 | disposition still patient (30) | LOC: PAVB 12:54 | PROVIDERS: ADMIT Family Medicine; ATTEND Family Medicine ==

== ENCOUNTER 2022-05-28 15:50 | Inpatient (IN) | payer OTHER | END 2022-06-27 15:11 | disposition still patient (30) | LOC: PAVB 15:50 | PROVIDERS: ADMIT Family Medicine; ATTEND Family Medicine ==

== ENCOUNTER → 2022-05-28 | Outpatient (CLI) | payer OTHER | LOC: LAB 10:45 | PROVIDERS: ATTEND Family Medicine | DX: E78.49 Other hyperlipidemia (principal); E03.8 Other specified hypothyroidism; I10 Essential (primary) hypertension; D50.8 Other iron deficiency anemias | CPT/HCPCS: 80061; 82310; 82728; 83540; 84443 ==

== ENCOUNTER 2022-06-27 11:38 | Outpatient (CLI) | payer OTHER ==
[2022-06-27 12:58] LABS: PLATELET COUNT 176 K/uL (152-353)
[2022-06-27 13:20] LABS: POTASSIUM 4.1 mmol/L (3.6-5.2)
== END 2022-06-27 19:04 | disposition home or self-care (01) ==
LOC: LAB 11:38
PROVIDERS: ATTEND Family Medicine
DX: I10 Essential (primary) hypertension (principal); M32.8 Other forms of systemic lupus erythematosus
CPT/HCPCS: 80053; 85027

== ENCOUNTER 2022-06-27 17:33 | Inpatient (IN) | payer OTHER | END 2022-07-28 10:39 | disposition still patient (30) | LOC: PAVB 17:33 | PROVIDERS: ADMIT Family Medicine; ATTEND Family Medicine ==

== ENCOUNTER 2022-07-28 12:32 | Inpatient (IN) | payer OTHER | END 2022-08-28 08:52 | disposition still patient (30) | LOC: PAVB 12:32 | PROVIDERS: ADMIT Family Medicine; ATTEND Family Medicine ==

== ENCOUNTER 2022-08-28 11:15 | Inpatient (IN) | payer OTHER | END 2022-09-25 12:05 | disposition still patient (30) | LOC: PAVB 11:15 | PROVIDERS: ADMIT Family Medicine; ATTEND Family Medicine ==

== ENCOUNTER 2022-09-04 10:59 | Outpatient (CLI) | payer OTHER ==
[2022-09-04 11:24] LABS: PLATELET COUNT 186 K/uL (152-353)
== END 2022-09-04 20:05 | disposition home or self-care (01) ==
LOC: LAB 10:59
PROVIDERS: ATTEND Family Medicine
DX: J02.9 Acute pharyngitis, unspecified (principal); R05.9 Cough, unspecified; R09.81 Nasal congestion
CPT/HCPCS: 85027; 87502

== ENCOUNTER 2022-09-06 14:57 | Outpatient (CLI) | payer OTHER ==
[2022-09-06 15:56] LABS: PLATELET COUNT 183 K/uL (152-353)
== END 2022-09-06 19:26 | disposition home or self-care (01) ==
LOC: RAD 14:57 → LAB 14:57
PROVIDERS: ATTEND Family Medicine
DX: R05.9 Cough, unspecified (principal); R09.81 Nasal congestion
CPT/HCPCS: 85027

== ENCOUNTER 2022-09-25 14:13 | Inpatient (IN) | payer OTHER | END 2022-10-26 11:29 | disposition still patient (30) | LOC: PAVB 14:13 | PROVIDERS: ADMIT Family Medicine; ATTEND Family Medicine ==

== ENCOUNTER 2022-10-26 12:05 | Inpatient (IN) | payer OTHER | END 2022-11-25 10:51 | disposition still patient (30) | LOC: PAVB 12:05 | PROVIDERS: ADMIT Family Medicine; ATTEND Family Medicine ==

== ENCOUNTER 2022-11-25 10:49 | Outpatient (CLI) | payer OTHER | END 2022-11-25 20:40 | disposition home or self-care (01) | LOC: LAB 10:49 | PROVIDERS: ATTEND Family Medicine | DX: D50.8 Other iron deficiency anemias (principal); E03.8 Other specified hypothyroidism | CPT/HCPCS: 82310; 82728; 83540; 84443 ==

== ENCOUNTER 2022-11-25 13:58 | Inpatient (IN) | payer OTHER | END 2022-12-26 10:38 | disposition still patient (30) | LOC: PAVB 13:58 | PROVIDERS: ADMIT Family Medicine; ATTEND Family Medicine ==

== ENCOUNTER 2022-11-27 13:04 | Outpatient (CLI) | payer OTHER ==
[2022-11-27 13:16] LABS: PLATELET COUNT 183 K/uL (152-353)
[2022-11-27 13:28] LABS: POTASSIUM 4.3 mmol/L (3.6-5.2)
== END 2022-11-27 19:14 | disposition home or self-care (01) ==
LOC: LAB 13:04
PROVIDERS: ATTEND Family Medicine
DX: D50.8 Other iron deficiency anemias (principal); D64.89 Other specified anemias; I10 Essential (primary) hypertension; Z79.899 Other long term (current) drug therapy
CPT/HCPCS: 36415; 80053; 80164; 82542; 85027

== ENCOUNTER 2022-12-26 11:26 | Inpatient (IN) | payer OTHER | END 2023-01-25 17:35 | disposition still patient (30) | LOC: PAVB 11:26 | PROVIDERS: ADMIT Family Medicine; ATTEND Family Medicine ==

== ENCOUNTER 2023-03-14 06:13 | Outpatient (CLI) | payer OTHER ==
[2023-03-14 14:07] LABS: PLATELET COUNT 185 K/uL (152-353)
== END 2023-03-14 20:23 | disposition home or self-care (01) ==
LOC: LAB 06:13
PROVIDERS: ATTEND Family Medicine
DX: N39.0 Urinary tract infection, site not specified (principal)
CPT/HCPCS: 81000; 85027; 87077; 87086; 87088; 87186

== ENCOUNTER 2023-09-09 20:11 | Outpatient (CLI) | payer OTHER ==
[~2023-09-09 20:11] MED LIST changes: +ALBU0.0813 INH; +ALLO100T22 PO; +ARTIFICIAL TEARS1 % OPTH; +BENEPROTEIN6 GM PO; +BENZONATATE100 MG PO; +POTASSIUM CHLORIDE PO; +[UNRECOGNIZED DRUG - CODE] EX
== END 2023-09-09 22:47 | disposition home or self-care (01) ==
LOC: LAB 20:11
PROVIDERS: ATTEND Family Medicine
DX: R19.4 Change in bowel habit (principal)
CPT/HCPCS: 87015; 87045; 87324; 87328; 87329; 87449; 87899